=== PATIENT | male | born 1965 | race Caucasian/White ===

== ENCOUNTER → 2016-11-13 | Outpatient (CLI) | payer OTHER ==
--- NOTE | 2016-11-13 07:29 | US ---
EXAMINATION TYPE: US gallbladder DATE OF EXAM: 11/13/2016 COMPARISON: NONE CLINICAL HISTORY: R10.84 ABD PAIN. Chest pain and pressure EXAM MEASUREMENTS: Liver Length: 22.6 cm Gallbladder Wall: 0.6 cm CBD: 0.4 cm Right Kidney: 10.5 x 4.5 x 4.6 cm Pancreas: Obscured by bowel gas Liver: Enlarged, heterogeneous with probable fatty sparing, difficult to penetrate Gallbladder: Multiple gallstones with thickened wall Evidence for sonographic Kimball's sign: Yes CBD: wnl Right Kidney: wnl IMPRESSION: 1. Clinical correlation recommended for acute cholecystitis. 2. Moderate fatty infiltration liver.
== END | disposition home or self-care (01) ==
LOC: RADUSWWP 06:51
PROVIDERS: ATTEND Internal Medicine
DX: K76.0 Fatty (change of) liver, not elsewhere classified (principal)
CPT/HCPCS: 76705

== ENCOUNTER 2017-03-28 10:20 | Inpatient (IN) | payer OTHER ==
[2017-03-28] MEDS ORDERED: HYDROmorphone 1 MG/ML 1 ML SYRINGE IVP STA ×2 (10:56→12:27)
[2017-03-28] MEDS ORDERED: ONDANSETRON 4 MG/2 ML VIAL IVP STA (10:56)
--- NOTE | 2017-03-28 10:59 | ED ---
General Adult HPI <Marcelino Pizano - Last Filed: 03/28/17 12:53> - General Source: patient, RN notes reviewed Mode of arrival: ambulatory Limitations: no limitations <David Vela - Last Filed: 03/28/17 12:57> - General Chief complaint: Abdominal Pain Stated complaint: ABDOMINAL PAIN Time Seen by Provider: 03/28/17 10:38 - History of Present Illness Initial comments: Patient 51-year-old male who presents emergency room today with chief complaint of abdominal pain over the last 2-3 days. He does admit that he is expressing discomfort in the upper abdomen. He states this started after he ate breakfast a few days ago. He states had similar symptoms in the past and has gone to other emergency room for her states that he's been treated for indigestion. He states they've not been able to hold anything else is wrong. He states that he was speaking with his sister who describes similar symptoms and have problems with her gallbladder. Patient does admit to symptoms of nausea vomiting having a difficult time keeping his medications on this morning. He denies any other complaints or symptoms at this time. Patient denies any recent fever, chills, shortness of breath, chest pain, back pain, numbness or tingling, dysuria or hematuria, constipation or diarrhea, headaches or visual changes, or any other complaints. (David Vela) - Related Data Home Medications Medication Instructions Recorded Confirmed Atenolol/Chlorthalidone 1 tab PO DAILY 11/27/15 03/28/17 [Atenolol-Chlorthalidone 50-25] Omeprazole [PriLOSEC] 20 mg PO DAILY 11/27/15 03/28/17 Ergocalciferol (Vitamin D2) 50,000 unit PO MO 03/28/17 03/28/17 [Vitamin D2] Fenofibrate 160 mg PO DAILY 03/28/17 03/28/17 Lovastatin [Mevacor] 20 mg PO DAILY 03/28/17 03/28/17 Ranitidine HCl [Zantac] 150 mg PO DAILY PRN 03/28/17 03/28/17 Previous Rx's Medication Instructions Recorded Cyclobenzaprine [Flexeril] 10 mg PO BID #60 tablet 01/29/16 HYDROcodone/APAP 10-325MG [[place] 1 tab PO Q6H PRN #20 tab 01/29/16 10-325] Meloxicam [Mobic] 7.5 mg PO BID #60 tab 01/29/16 Allergies Allergy/AdvReac Type Severity Reaction Status Date / Time codeine Allergy Rash/Hives Verified 03/28/17 11:14 Penicillins Allergy Unknown Verified 03/28/17 11:14 Childhood Review of Systems ROS Other: All systems not noted in ROS Statement are negative. <Marcelino Pizano - Last Filed: 03/28/17 12:53> ROS Other: All systems not noted in ROS Statement are negative. <David Vela - Last Filed: 03/28/17 12:57> ROS Statement: Those systems with pertinent positive or pertinent negative responses have been documented in the HPI. Past Medical History Past Medical History: Asthma, Chest Pain / Angina, GERD/Reflux, Hypertension, Myocardial Infarction ([place]), Musculoskeletal Disorder Additional Past Medical History / Comment(s): Slipped Discs in Neck, INCR PAIN LATELY W/ NT RAKESH ARMS/HANDS. DJD Lower Back. HYPOGLYCEMIA. RAN OUT OF RX, HAD SOME CP, LAST 3-4 DAYS AGO, AWAITING REFILLS. 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 Last Myocardial Infarction Date:: August 2014 History of Any Multi-Drug Resistant Organisms: None Reported Past Surgical History: Heart Catheterization Additional Past Surgical History / Comment(s): LT Eye - Has Nylon Screen from Inj at 16 yrs old. PAIN PROC, LAST ON 12/03/15. Skin cancer removal Past Anesthesia/Blood Transfusion Reactions: No Reported Reaction Past Psychological History: Anxiety, Depression Smoking Status: Former smoker Past Alcohol Use History: Rare Past Drug Use History: None Reported - Past Family History Father Family Medical History: Coronary Artery Disease (CAD), Myocardial Infarction ([place] ) Additional Family Medical History / Comment(s): Father has 3 coronary stents. Mother Additional Family Medical History / Comment(s): Mother has irregular heart beat , had tx for this . <David Vela - Last Filed: 03/28/17 12:57> General Exam <Marcelino Pizano - Last Filed: 03/28/17 12:53> Limitations: no limitations <David Vela - Last Filed: 03/28/17 12:57> - General Exam Comments Initial Comments: General: The patient is awake and alert, in no distress, and does not appear acutely ill. Eye: Pupils are equal, round and reactive to light, extra-ocular movements are intact. No nystagmus. There is normal conjunctiva bilaterally. No signs of icterus. Ears, nose, mouth and throat: There are moist mucous membranes and no oral lesions. Neck: The neck is supple, there is no tenderness or JVD. Cardiovascular: There is a regular rate and rhythm. No murmur, rub or gallop is appreciated. Respiratory: Lungs are clear to auscultation, respirations are non-labored, breath sounds are equal. No wheezes, stridor, rales, or rhonchi. Gastrointestinal: Normal appearance. Normal bowel sounds. Patient does have tenderness epigastrically upper quadrant. No rebound or guarding. No CVA tenderness. Musculoskeletal: Normal ROM, no tenderness. Strength 5/5. Sensation intact. Pulses equal bilaterally 2+. Neurological: A&O x 3. CN II-XII intact, There are no obvious motor or sensory deficits. Coordination appears grossly intact. Speech is normal. Skin: Skin is warm and dry and no rashes or lesions are noted. Psychiatric: Cooperative, appropriate mood & affect, normal judgment. (David Vela) Course <Marcelino Pizano - Last Filed: 03/28/17 12:53> <David Vela - Last Filed: 03/28/17 12:57> Vital Signs 03/28/17 03/28/17 10:28 12:27 Temperature 97.9 F 98.7 F Pulse Rate 74 69 Respiratory 18 18 Rate Blood Pressure 135/95 135/92 O2 Sat by Pulse 98 97 Oximetry - Reevaluation(s) Reevaluation #1: 03/28/17 12:53 I did personally do a [id number] evaluation the patient did discuss findings with him and his . Patient does demonstrate right upper quadrant tenderness palpation. Ultrasound does show a thickened gallbladder wall with a borderline common bile duct. Patient does have a markedly elevated bilirubin as well as liver enzymes. Did discuss the case with Dr. Tapia who is on city call for surgery I also did discuss the case with Trav Walsh. Patient will be admitted with consultation to see from GI for a possible ERCP. Patient does have no personal antibiotic ALLERGIES he has been on Keflex without any difficulty there is a family history of penicillin ALLERGY so he is not ever had a problem with this he is not sure if he ever took penicillin. (Marcelino Pizano ) Medical Decision Making - Lab Data Result diagrams: 03/28/17 11:10 03/28/17 11:10 <Marcelino Pizano - Last Filed: 03/28/17 12:53> - Lab Data Result diagrams: 03/28/17 11:10 03/28/17 11:10 <David Vela - Last Filed: 03/28/17 12:57> - Lab Data Lab Results 03/28/17 03/28/17 03/28/17 Range/Units 11:10 11:10 11:58 WBC 5.0 (3.8-10.6) k/uL RBC 5.38 (4.30-5.90) m/uL Hgb 16.6 (13.0-17.5) gm/dL Hct 47.6 (39.0-53.0) % MCV 88.4 (80.0-100.0) fL MCH 30.8 (25.0-35.0) pg MCHC 34.8 (31.0-37.0) g/dL RDW 13.5 (11.5-15.5) % Plt Count 309 (150-450) k/uL Neutrophils % 66 % Lymphocytes % 19 % Monocytes % 5 % Eosinophils % 7 % Basophils % 1 % Neutrophils # 3.3 (1.3-7.7) k/uL Lymphocytes # 1.0 (1.0-4.8) k/uL Monocytes # 0.3 (0-1.0) k/uL Eosinophils # 0.3 (0-0.7) k/uL Basophils # 0.0 (0-0.2) k/uL Sodium 138 (137-145) mmol/L Potassium 3.5 (3.5-5.1) mmol/L Chloride 98 (98-107) mmol/L Carbon Dioxide 25 (22-30) mmol/L Anion Gap 15 mmol/L BUN 19 (9-20) mg/dL Creatinine 1.50 H (0.66-1.25) mg/dL Est GFR (MDRD) Af Amer 60 (>60 ml/min/1.73 sqM) Est GFR (MDRD) Non-Af 49 (>60 ml/min/1.73 sqM) Glucose 140 H (74-99) mg/dL Calcium 10.1 (8.4-10.2) mg/dL Total Bilirubin 6.3 H (0.2-1.3) mg/dL AST 925 H (17-59) U/L ALT 1263 H (21-72) U/L Alkaline Phosphatase 126 (38-126) U/L Total Protein 7.8 (6.3-8.2) g/dL Albumin 4.8 (3.5-5.0) g/dL Amylase 40 (30-110) U/L Lipase 308 H (23-300) U/L Urine Color Dark [place] Urine Appearance Clear (Clear) Urine pH 6.0 (5.0-8.0) Ur Specific Gleason 1.017 (1.001-1.035) Urine Protein 1+ H (Negative) Urine Glucose (UA) Negative (Negative) Urine Ketones Negative (Negative) Urine Blood Negative (Negative) Urine Nitrite Negative (Negative) Urine Bilirubin 2+ H (Negative) Urine Urobilinogen 4.0 (<2.0) mg/dL Ur Leukocyte Esterase Negative (Negative) Urine RBC <1 (0-5) /hpf Urine WBC 1 (0-5) /hpf Ur Squamous Epith Cells <1 (0-4) /hpf Urine Mucus Few H (None) /hpf Disposition <Marcelino Pizano - Last Filed: 03/28/17 12:53> Time of Disposition: 12:57 <David Vela - Last Filed: 03/28/17 12:57> Clinical Impression: Cholecystitis Disposition: ADMITTED IP TO THIS HOSP Condition: Stable Referrals: Valerie Belcher MD [Primary Care Provider] - 1-2 days
[2017-03-28 11:18] LABS: Basophils % (A) 1 %; CH 31.7; Eosinophils # (A) 0.3 k/uL (0-0.7); Eosinophils % (A) 7 %; HCT 47.6 % (39.0-53.0); HDW 2.51; HGB 16.6 gm/dL (13.0-17.5); Luc # (Auto) 0.08; Luc % (Auto) 2; Lymphocytes % (A) 19 %; MCH 30.8 pg (25.0-35.0); MCHC 34.8 g/dL (31.0-37.0); MCV 88.4 fL (80.0-100.0); Monocytes # (A) 0.3 k/uL (0-1.0); Monocytes % (A) 5 %; Neutrophils # (A) 3.3 k/uL (1.3-7.7); Neutrophils % (A) 66 %; RBC 5.38 m/uL (4.30-5.90); RDW 13.5 % (11.5-15.5); WBC (Perox) 5.01
[2017-03-28 11:31] LABS: Calcium 10.1 mg/dL (8.4-10.2); Potassium 3.5 mmol/L (3.5-5.1); Total Bilirubin 6.3 mg/dL (0.2-1.3); Total Protein 7.8 g/dL (6.3-8.2)
--- NOTE | 2017-03-28 11:47 | XR ---
EXAMINATION TYPE: XR KUB , 2 VIEWS DATE OF EXAM ORDERED: 03/28/2017 HISTORY: abdominal pain. COMPARISON: None. FINDINGS: The lung bases are clear. Within the abdomen, there are nondistended loops of air-filled small bowel. No free air is seen. No u nusual calcifications are identified. IMPRESSION: FINDINGS MOST CONSISTENT WITH SMALL BOWEL ILEUS.
[2017-03-28] MEDS ORDERED: SODIUM CHLORIDE 0.9% 1,000 ML IV STA (12:04)
--- NOTE | 2017-03-28 12:10 | US ---
EXAMINATION TYPE: US abdomen limited DATE OF EXAM: 03/28/2017 COMPARISON: Previous study dated 11/13/2016 CLINICAL HISTORY: Pain. RUQ and epigastric pain, nausea/vomiting x 3 days EXAM MEASUREMENTS: Liver Length: 22.9 cm Gallbladder Wall: 0.4 cm CBD: 0.5 cm Right Kidney: 11.0 x 4.8 x 5.2 cm *Technical limitations due to overlying bowel content Pancreas: Obscured by bowel gas Liver: enlarged, heterogeneous, attenuating, unable to penetrate Gallbladder: multiple stones, thickened wall Evidence for sonographic Kimball's sign: yes CBD: limited evaluation Right Kidney: no evidence of hydronephrosis or mass The pancreas is obscured. The liver is enlarged measuring 23 cm. It is echogenic and likely fatty infiltrated. There are multiple stones within the gallbladder. Gallbladder wall is thickened measuring 4 mm. The d istal common hepatic duct measures 5 mm. There is a positive sonographic Kimball's sign. The right kidney is unremarkable. IMPRESSION: 1. HEPATOMEGALY AND FATTY INFILTRATION OF THE LIVER. 2. CHOLELITHIASIS AND PROBABLE ACUTE CHOLECYSTITIS.
[2017-03-28 12:26] LABS: Appearance,Urine Clear (Clear); Bilirubin,Urine 2+ (Negative); Glucose,Urine (UA) Negative (Negative); Ketones,Urine Negative (Negative); Leukocyte Esterase,Urine Negative (Negative); Mucus,Urine Few /hpf; Nitrite,Urine Negative (Negative); Particle Count 5917; Protein,Urine 1+ (Negative); RBC,Urine <1 /hpf (0-5); Specific Gravity,Urine 1.017 (1.001-1.035); Squamous Epithelial Cell,Urine <1 /hpf (0-4); UA Billing (MACRO vs. MICRO) MICRO; WBC,Urine 1 /hpf (0-5)
[2017-03-28] MEDS ORDERED: LORazepam 2 MG/ML INJ IV PRN (12:53)
[2017-03-28] MEDS ORDERED: NALOXONE 0.4 MG/ML 1 ML VIAL IV PRN (12:53)
[2017-03-28] MEDS ORDERED: PIPERACILLIN-TAZOBACTAM 3.375 GM in DEXTROSE/WATER 1 50ML.BAG IVPB STA (12:55)
--- NOTE | 2017-03-28 13:53 | P.GSCN ---
History of Present Illness Consult date: 03/28/17 Reason for Consult: Abdominal pain History of present illness: The patient's a 51-year-old man who presented to the emergency room with abdominal pain. He's had pain like this in the past 3-6 months. The emergency department and had a computed tomography scan done which was normal. I see report of the ultrasound done in October which showed similar findings of gallstones and gallbladder wall thickening. Currently he's had 3 days of pain with nausea and vomiting. He thinks she's had a fever. Denies jaundice, tea- colored urine or acholic stool. History of elevated liver function tests for greater than 1 year. He says he used to drink a "lot of beer" and that would cause pain and diarrhea. Now he just occasionally has a glass of wine or mixed drink. He thinks he is been evaluated in the past for hepatitis and HIV in those tests have been negative according to him. I don't see those results on the computer. No blood in the stool or dark tarry stool. There is a family history of gallbladder disease. Review of Systems All systems: negative Past Medical History Past Medical History: Asthma, Chest Pain / Angina, GERD/Reflux, Hypertension, Myocardial Infarction ([place]), Musculoskeletal Disorder Additional Past Medical History / Comment(s): Degenerative joint disease in his back, elevated liver function tests Last Myocardial Infarction Date:: August 2014 History of Any Multi-Drug Resistant Organisms: None Reported Past Surgical History: Heart Catheterization Additional Past Surgical History / Comment(s): LT Eye - Has Nylon Screen from Inj at 16 yrs old. PAIN PROC, LAST ON 12/03/15. Skin cancer removal Past Anesthesia/Blood Transfusion Reactions: No Reported Reaction Past Psychological History: Anxiety, Depression Smoking Status: Former smoker Past Alcohol Use History: Rare Past Drug Use History: None Reported - Past Family History Father Family Medical History: Coronary Artery Disease (CAD), Myocardial Infarction ([place] ) Additional Family Medical History / Comment(s): Father has 3 coronary stents. Mother Additional Family Medical History / Comment(s): Mother has irregular heart beat , had tx for this . Medications and Allergies Home Medications Medication Instructions Recorded Confirmed Type Atenolol/Chlorthalidone 1 tab PO DAILY 11/27/15 03/28/17 History [Atenolol-Chlorthalidone 50-25] Omeprazole [PriLOSEC] 20 mg PO DAILY 11/27/15 03/28/17 History Cyclobenzaprine [Flexeril] 10 mg PO BID #60 tablet 01/29/16 03/28/17 Rx HYDROcodone/APAP 10-325MG [[place] 1 tab PO Q6H PRN #20 tab 01/29/16 03/28/17 Rx 10-325] Meloxicam [Mobic] 7.5 mg PO BID #60 tab 01/29/16 03/28/17 Rx Ergocalciferol (Vitamin D2) 50,000 unit PO MO 03/28/17 03/28/17 History [Vitamin D2] Fenofibrate 160 mg PO DAILY 03/28/17 03/28/17 History Lovastatin [Mevacor] 20 mg PO DAILY 03/28/17 03/28/17 History Ranitidine HCl [Zantac] 150 mg PO DAILY PRN 03/28/17 03/28/17 History Allergies Allergy/AdvReac Type Severity Reaction Status Date / Time codeine Allergy Rash/Hives Verified 03/28/17 11:14 Penicillins Allergy Unknown Verified 03/28/17 11:14 Childhood Surgical - Exam Osteopathic Statement: *. No significant issues noted on an osteopathic structural exam other than those noted in the History and Physical/Consult. Vital Signs Temp Pulse Resp BP Pulse Ox 97.9 F 74 18 135/95 98 03/28/17 10:28 03/28/17 10:28 03/28/17 10:28 03/28/17 10:28 03/28/17 10:28 - General well developed, well nourished, no distress - Eyes normal ocular movement - ENT normal mucosa - Neck trachea midline, no lymphadectomy - Respiratory normal expansion, clear to auscultation - Cardiovascular Rhythm: regular - Abdomen Abdomen: soft, tender (Minimal epigastric), bowel sounds, no guarding, no rigid , no rebound, distended (Somewhat protruding Get with slight tympany to percussion) - Psychiatric oriented to time, oriented to person, oriented to place, speech is normal, memory intact Results - Labs 03/28/17 11:10 03/28/17 11:10 Abnormal Lab Results - Last 24 Hours (Table) 03/28/17 03/28/17 Range/Units 11:10 11:58 Creatinine 1.50 H (0.66-1.25) mg/dL Glucose 140 H (74-99) mg/dL Total Bilirubin 6.3 H (0.2-1.3) mg/dL AST 925 H (17-59) U/L ALT 1263 H (21-72) U/L Lipase 308 H (23-300) U/L Urine Protein 1+ H (Negative) Urine Bilirubin 2+ H (Negative) Urine Mucus Few H (None) /hpf Diabetes panel 03/28/17 Range/Units 11:10 Sodium 138 (137-145) mmol/L Potassium 3.5 (3.5-5.1) mmol/L Chloride 98 (98-107) mmol/L Carbon Dioxide 25 (22-30) mmol/L BUN 19 (9-20) mg/dL Creatinine 1.50 H (0.66-1.25) mg/dL Glucose 140 H (74-99) mg/dL Calcium 10.1 (8.4-10.2) mg/dL AST 925 H (17-59) U/L ALT 1263 H (21-72) U/L Alkaline Phosphatase 126 (38-126) U/L Total Protein 7.8 (6.3-8.2) g/dL Albumin 4.8 (3.5-5.0) g/dL Calcium panel 03/28/17 Range/Units 11:10 Calcium 10.1 (8.4-10.2) mg/dL Albumin 4.8 (3.5-5.0) g/dL Pituitary panel 03/28/17 Range/Units 11:10 Sodium 138 (137-145) mmol/L Potassium 3.5 (3.5-5.1) mmol/L Chloride 98 (98-107) mmol/L Carbon Dioxide 25 (22-30) mmol/L BUN 19 (9-20) mg/dL Creatinine 1.50 H (0.66-1.25) mg/dL Glucose 140 H (74-99) mg/dL Calcium 10.1 (8.4-10.2) mg/dL Adrenal panel 03/28/17 Range/Units 11:10 Sodium 138 (137-145) mmol/L Potassium 3.5 (3.5-5.1) mmol/L Chloride 98 (98-107) mmol/L Carbon Dioxide 25 (22-30) mmol/L BUN 19 (9-20) mg/dL Creatinine 1.50 H (0.66-1.25) mg/dL Glucose 140 H (74-99) mg/dL Calcium 10.1 (8.4-10.2) mg/dL Total Bilirubin 6.3 H (0.2-1.3) mg/dL AST 925 H (17-59) U/L ALT 1263 H (21-72) U/L Alkaline Phosphatase 126 (38-126) U/L Total Protein 7.8 (6.3-8.2) g/dL Albumin 4.8 (3.5-5.0) g/dL - Imaging US - abdomen: report reviewed Assessment and Plan (1) Cholelithiasis Current Visit: Yes Status: Acute Code(s): K80.20 - CALCULUS OF GALLBLADDER W /O CHOLECYSTITIS W/O OBSTRUCTION SNOMED Code(s): 026916425 (2) Elevated liver function tests Current Visit: Yes Status: Acute Code(s): R79.89 - OTHER SPECIFIED ABNORMAL FINDINGS OF BLOOD CHEMISTRY SNOMED Code(s): 321263586 (3) Abdominal pain Current Visit: Yes Status: Acute Code(s): R10.9 - UNSPECIFIED ABDOMINAL PAIN SNOMED Code(s): 49318476 Plan: He does have gallstones. The ultrasound findings of gallbladder wall thickening is similar to an ultrasound done in October. His common bile duct is normal caliber. The liver function tests are elevated. Agree with GI consult. Agree with empiric antibiotics. We will order an MRCP to further evaluate this. If that is normal then concern would be for some sort of alcoholic hepatitis causing the elevated liver function tests. Further recommendations to follow
[2017-03-28 14:30] VITALS: BMI 31.4
[2017-03-28] MEDS: HYDROmorphone 1 MG/ML 1 ML SYRINGE IVP PRN ×2 (18:18→22:43)
[2017-03-28] MEDS: PIPERACILLIN-TAZOBACTAM 3.375 GM in DEXTROSE/WATER 1 50ML.BAG IVPB SCH (20:28)
[2017-03-29] MEDS: PIPERACILLIN-TAZOBACTAM 3.375 GM in DEXTROSE/WATER 1 50ML.BAG IVPB SCH ×3 (05:51→21:18)
[2017-03-29] MEDS: HYDROmorphone 1 MG/ML 1 ML SYRINGE IVP PRN ×2 (05:56→08:52)
[2017-03-29] MEDS: ONDANSETRON 4 MG/2 ML VIAL IVP PRN ×2 (05:56→15:31)
[2017-03-29 08:44] LABS: Basophils % (A) 1 %; CH 32.6; Eosinophils # (A) 0.3 k/uL (0-0.7); Eosinophils % (A) 8 %; HCT 40.5 % (39.0-53.0); HDW 2.75; HGB 14.1 gm/dL (13.0-17.5); Luc # (Auto) 0.11; Luc % (Auto) 3; Lymphocytes # (A) 1.2 k/uL (1.0-4.8); Lymphocytes % (A) 29 %; MCH 31.7 pg (25.0-35.0); MCHC 34.9 g/dL (31.0-37.0); MCV 90.8 fL (80.0-100.0); Mean Platelet Volume 6.4; Monocytes # (A) 0.3 k/uL (0-1.0); Monocytes % (A) 8 %; Neutrophils # (A) 2.3 k/uL (1.3-7.7); Neutrophils % (A) 53 %; RBC 4.46 m/uL (4.30-5.90); RDW 12.4 % (11.5-15.5); WBC 4.3 k/uL (3.8-10.6); WBC (Perox) 4.17
[2017-03-29 09:10] LABS: Calcium 9.3 mg/dL (8.4-10.2); Potassium 3.3 mmol/L (3.5-5.1); Total Bilirubin 3.3 mg/dL (0.2-1.3); Total Protein 6.7 g/dL (6.3-8.2)
[2017-03-29] MEDS: SODIUM CHLORIDE 0.9% 1,000 ML IV SCH ×2 (11:03→19:45)
[2017-03-29] MEDS ORDERED: Potassium Replacement Protocol 1 EACH MISC MISCELLANE PRN (11:55)
--- NOTE | 2017-03-29 11:58 | P.HPIM ---
History of Present Illness H&P Date: 03/29/17 Chief Complaint: Abdominal pain This is a 51-year-old gentleman with past medical history noted below who presented to the emergency room with abdominal pain. Patient said that his pain is being going on and off for several weeks and got progressively worse for the past few days. He described this pain as sharp and located mostly in the epigastric area and right upper quadrant. He denies nausea or vomiting. He said that he is having normal bowel movement. He can't recall anything that makes his pain better or worse. He presented to the emergency room and was evaluated and was found to have evidence of acute hepatitis with elevated bilirubin. Patient himself denies drinking alcohol. He said that he is only drinking occasionally. He underwent an ultrasound of the liver showing evidence of cholelithiasis with probable acute cholecystitis. Patient was admitted to the hospital for further evaluation. Review of Systems Review of system: 14 points review of systems were obtained and were negative except to what were mentioned in the HPI. Past Medical History Past Medical History: Asthma, Chest Pain / Angina, GERD/Reflux, Hypertension, Myocardial Infarction ([place]), Musculoskeletal Disorder Additional Past Medical History / Comment(s): Degenerative joint disease in his back, elevated liver function tests Last Myocardial Infarction Date:: August 2014 History of Any Multi-Drug Resistant Organisms: None Reported Past Surgical History: Heart Catheterization Additional Past Surgical History / Comment(s): LT Eye - Has Nylon Screen from Inj at 16 yrs old. PAIN PROC, LAST ON 12/03/15. Skin cancer removal Past Anesthesia/Blood Transfusion Reactions: No Reported Reaction Past Psychological History: Anxiety, Depression Additional Psychological History / Comment(s): NO RX USED CURRENTLY, SEEING THERAPIST Smoking Status: Former smoker Past Alcohol Use History: Rare Additional Past Alcohol Use History / Comment(s): Started Smoking age 35, 1 ppd. Past Drug Use History: None Reported - Past Family History Father Family Medical History: Coronary Artery Disease (CAD), Myocardial Infarction ([place] ) Additional Family Medical History / Comment(s): Father has 3 coronary stents. Mother Additional Family Medical History / Comment(s): Mother has irregular heart beat , had tx for this . Medications and Allergies Home Medications Medication Instructions Recorded Confirmed Type Atenolol/Chlorthalidone 1 tab PO DAILY 11/27/15 03/28/17 History [Atenolol-Chlorthalidone 50-25] Omeprazole [PriLOSEC] 20 mg PO DAILY 11/27/15 03/28/17 History Cyclobenzaprine [Flexeril] 10 mg PO BID #60 tablet 01/29/16 03/28/17 Rx HYDROcodone/APAP 10-325MG [[place] 1 tab PO Q6H PRN #20 tab 01/29/16 03/28/17 Rx 10-325] Meloxicam [Mobic] 7.5 mg PO BID #60 tab 01/29/16 03/28/17 Rx Ergocalciferol (Vitamin D2) 50,000 unit PO MO 03/28/17 03/28/17 History [Vitamin D2] Fenofibrate 160 mg PO DAILY 03/28/17 03/28/17 History Lovastatin [Mevacor] 20 mg PO DAILY 03/28/17 03/28/17 History Ranitidine HCl [Zantac] 150 mg PO DAILY PRN 03/28/17 03/28/17 History Allergies Allergy/AdvReac Type Severity Reaction Status Date / Time codeine Allergy Rash/Hives Verified 03/28/17 11:14 Penicillins Allergy Unknown Verified 03/28/17 11:14 Childhood Physical Exam Vitals: Vital Signs Temp Pulse Pulse Pulse Resp BP BP 03/29/17 07:00 97.1 F L 65 20 115/65 03/28/17 23:00 97.9 F 59 L 18 123/68 03/28/17 14:12 97.1 F L 64 18 122/70 03/28/17 13:18 98.7 F 68 20 155/90 03/28/17 12:27 98.7 F 69 18 135/92 Pulse Ox 03/29/17 07:00 95 03/28/17 23:00 97 03/28/17 14:12 97 03/28/17 13:18 97 03/28/17 12:27 97 Intake and Output 03/28/17 03/29/17 03/29/17 22:59 06:59 14:59 Intake Total 550 0 Balance 550 0 Intake: Oral 550 0 Other: Voiding Method Toilet Toilet # Voids 1 2 General: The patient is awake and alert, in no distress Eye: there is normal conjunctiva bilaterally. Neck: The neck is supple, there is no JVD. Cardiovascular: Normal S1-S2, no S3-S4, no murmurs. Respiratory: Lungs clear to auscultation bilaterally Gastrointestinal: Abdomen is soft, there is moderate tenderness to palpation worse in the epigastric area and right upper quadrant Musculoskeletal: There is no pedal edema. Neurological:. Speech is normal. Skin: Skin is warm and dry Results CBC & Chem 7: 03/29/17 08:11 03/29/17 08:11 Labs: Abnormal Lab Results - Last 24 Hours (Table) 03/28/17 03/29/17 Range/Units 11:58 08:11 Potassium 3.3 L (3.5-5.1) mmol/L Creatinine 1.54 H (0.66-1.25) mg/dL Total Bilirubin 3.3 H (0.2-1.3) mg/dL AST 387 H (17-59) U/L ALT 807 H (21-72) U/L Lipase 335 H (23-300) U/L Urine Protein 1+ H (Negative) Urine Bilirubin 2+ H (Negative) Urine Mucus Few H (None) /hpf Thrombosis Risk Factor Assmnt - Choose All That Apply Any of the Below Risk Factors Present?: Yes Other Risk Factors: No Other congenital or acquired thrombophilia - If yes, enter type in comment: No Assessment and Plan Assessment: 1. Cholelithiasis 2. Acute hepatitis with hyperbilirubinemia 3. Abdominal pain 4. Essential hypertension: Blood pressure within acceptable range 5. Mixed hyperlipidemia 6. Acute kidney injury Patient was seen and evaluated by general surgery. It is suspected acute cholecystitis with ascending cholangitis. Patient is on IV antibiotic. MRCP ordered. Awaiting GI evaluation. Viral hepatitis screen pending. Patient denies any alcohol use. Liver function tests are improving. We will continue to hold Lipitor and Tylenol. Continue IV fluid hydration. Pain control. Repeat lab work in the morning. Appreciate consultants recommendations.
--- NOTE | 2017-03-29 12:34 | MR ---
MRCP HISTORY: Abnormal abdomen ultrasound, abdomen pain and elevated liver function tests Multiplanar multisequence imaging obtained through the abdomen with three-dimensional reconstructions performed through the biliary tree. Exam correlated to prior ultrasound 03/28/2017 The liver shows signal drop on out of phase imaging compatible with fatty infiltration. The liver is enlarged. The spleen is enlarged. Gallbladder shows multiple luminal low signal foci compatible with stones. Gallbladder wall is thicke lesley There is no bowel dilation present. There are small foci of low signal also present within the di stal common bile duct. The heart appears enlarged. There is no pleural or pericardial effusion evident. The adrenal glands, kidneys, and pancreas are within normal limits. There is no retroperitoneal adenopathy or ascites. IMPRESSION: Cholelithiasis, choledocholithiasis. Thickened gallbladder wall, correlate for cholecysti tis. Cardiomegaly. Hepatic steatosis, hepatosplenomegaly.
[2017-03-29] MEDS: HYDROmorphone 0.5 MG/0.5 ML SYRINGE IVP PRN ×3 (12:51→19:42)
[2017-03-29 13:16] LABS: Partial Thromboplastin Time 22.8 sec (22.0-30.0); Prothrombin Time 10.4 sec (9.0-12.0)
--- NOTE | 2017-03-29 16:12 | P.PN ---
Subjective Progress Note Date: 03/29/17 Principal diagnosis: Abdominal and chest pain, elevated liver function tests The patient is feeling better today. Tolerating clear liquids. He did go for his MRCP. Objective - Vital Signs Vital signs: Vital Signs Temp 97.3 F L 03/29/17 15:00 Pulse 69 03/29/17 15:00 Resp 20 03/29/17 15:00 BP 129/73 03/29/17 15:00 Pulse Ox 95 03/29/17 15:00 Intake & Output 03/28/17 03/29/17 03/29/17 18:59 06:59 18:59 Intake Total 550 Balance 550 Weight 102 kg Intake: Oral 550 Other: Voiding Method Toilet Toilet # Voids 2 2 - Constitutional General appearance: Present: cooperative, no acute distress - Gastrointestinal General gastrointestinal: Present: soft - Labs CBC & Chem 7: 03/29/17 08:11 03/29/17 08:11 Labs: Abnormal Lab Results - Last 24 Hours (Table) 03/29/17 Range/Units 08:11 Potassium 3.3 L (3.5-5.1) mmol/L Creatinine 1.54 H (0.66-1.25) mg/dL Total Bilirubin 3.3 H (0.2-1.3) mg/dL AST 387 H (17-59) U/L ALT 807 H (21-72) U/L Lipase 335 H (23-300) U/L Microbiology - Last 24 Hours (Table) 03/28/17 13:08 Blood Culture - Preliminary Blood No Growth after 24 hours Assessment and Plan (1) Cholelithiasis Current Visit: Yes Status: Acute Code(s): K80.20 - CALCULUS OF GALLBLADDER W /O CHOLECYSTITIS W/O OBSTRUCTION SNOMED Code(s): 534831231 (2) Elevated liver function tests Current Visit: Yes Status: Acute Code(s): R79.89 - OTHER SPECIFIED ABNORMAL FINDINGS OF BLOOD CHEMISTRY SNOMED Code(s): 386395236 (3) Abdominal pain Current Visit: Yes Status: Acute Code(s): R10.9 - UNSPECIFIED ABDOMINAL PAIN SNOMED Code(s): 28866866 (4) Hepatosplenomegaly Current Visit: Yes Status: Acute Code(s): R16.2 - HEPATOMEGALY WITH SPLENOMEGALY, NOT ELSEWHERE CLASSIFIED SNOMED Code(s): 76964251 Plan: The MRCP did not show evidence of choledocholithiasis. His ultrasound is essentially the same since October 2016. He has an enlarged liver and spleen. He has gallstones. There is minimal gallbladder wall thickening. The gallbladder wall thickening is likely due to underlying liver disease. I do not feel he has acute cholecystitis or biliary colic. Viral hepatitis panel is pending. The patient states he does not really drink anymore, but does say he drinks wine and occasionally mixed drink on the weekend. He says every other weekend he may have a pint of liquor. I recommend medical workup of the hepatosplenomegaly and elevated liver function tests. No plan for laparoscopic cholecystectomy at this point. I did explain to he and his family that if his symptoms are to do liver disease, laparoscopic cholecystectomy may precipitate acute hepatic decompensation. I will check on recommendations by gastroenterology tomorrow.
[2017-03-29] MEDS: HEPARIN SODIUM,PORCINE 5,000 UNIT/ML 1 ML VIAL SQ SCH (21:18)
--- NOTE | 2017-03-29 21:42 | P.CONS ---
History of Present Illness - Reason for Consult Consult date: 03/28/17 Abdominal pain and jaundice - History of Present Illness The patient is a 51-year old male who presented to the ER with complaints of epigastric and RUQ pain of 2-3 days duration with no associated nausea, vomiting , fever, chills or back pain. Apparently, he had similar episodes over the last 3-6 months and went o the ER and was treated for indigestion. An US showed cholelithiasis and some thickening of the wall of the GB to 0.4 cm and hepatomegaly and coarse echos consistent with fatty liver. Patient drinks occasionaly wine and mixed drinks and a pint of liquor every other weekend. The patient was evaluated by surgery and MRI is ordered for tomorrow. Review of Systems 12-point ROS is otherwise negative except as per PI above. Past Medical History Past Medical History: Asthma, Chest Pain / Angina, GERD/Reflux, Hypertension, Myocardial Infarction (OR), Musculoskeletal Disorder Additional Past Medical History / Comment(s): Degenerative joint disease in his back, elevated liver function tests Last Myocardial Infarction Date:: August 2014 History of Any Multi-Drug Resistant Organisms: None Reported Past Surgical History: Heart Catheterization Additional Past Surgical History / Comment(s): LT Eye - Has Nylon Screen from Inj at 16 yrs old. PAIN PROC, LAST ON 12/03/15. Skin cancer removal Past Anesthesia/Blood Transfusion Reactions: No Reported Reaction Past Psychological History: Anxiety, Depression Additional Psychological History / Comment(s): NO RX USED CURRENTLY, SEEING THERAPIST Smoking Status: Former smoker Past Alcohol Use History: Rare Additional Past Alcohol Use History / Comment(s): Started Smoking age 35, 1 ppd. Past Drug Use History: None Reported - Past Family History Father Family Medical History: Coronary Artery Disease (CAD), Myocardial Infarction (OR ) Additional Family Medical History / Comment(s): Father has 3 coronary stents. Mother Additional Family Medical History / Comment(s): Mother has irregular heart beat , had tx for this . Medications and Allergies Home Medications Medication Instructions Recorded Confirmed Type Atenolol/Chlorthalidone 1 tab PO DAILY 11/27/15 03/28/17 History [Atenolol-Chlorthalidone 50-25] Omeprazole [PriLOSEC] 20 mg PO DAILY 11/27/15 03/28/17 History Cyclobenzaprine [Flexeril] 10 mg PO BID #60 tablet 01/29/16 03/28/17 Rx HYDROcodone/APAP 10-325MG [[place] 1 tab PO Q6H PRN #20 tab 01/29/16 03/28/17 Rx 10-325] Meloxicam [Mobic] 7.5 mg PO BID #60 tab 01/29/16 03/28/17 Rx Ergocalciferol (Vitamin D2) 50,000 unit PO MO 03/28/17 03/28/17 History [Vitamin D2] Fenofibrate 160 mg PO DAILY 03/28/17 03/28/17 History Lovastatin [Mevacor] 20 mg PO DAILY 03/28/17 03/28/17 History Ranitidine HCl [Zantac] 150 mg PO DAILY PRN 03/28/17 03/28/17 History Allergies Allergy/AdvReac Type Severity Reaction Status Date / Time codeine Allergy Rash/Hives Verified 03/28/17 11:14 Penicillins Allergy Unknown Verified 03/28/17 11:14 Childhood Physical Exam Vitals: Vital Signs Temp Pulse Pulse Resp BP BP Pulse Ox 03/28/17 14:12 97.1 F L 64 18 122/70 97 03/28/17 13:18 98.7 F 68 20 155/90 97 03/28/17 12:27 98.7 F 69 18 135/92 97 03/28/17 10:28 97.9 F 74 18 135/95 98 Intake and Output 03/28/17 03/28/17 03/28/17 06:59 14:59 22:59 Other: Weight 102 kg Patient Weight 03/29/17 06:59 Weight 102 kg General: Appeared stated age very pleasant in no acute distress Head and neck: Normocephalic and atraumatic. Conjunctivae pink and sclerae icteric. Mucous membranes moist and pink. No masses in the neck or tracheal shifts Lungs: Clear to auscultation with no dullness to percussion Heart: Regular, no abnormal sounds, murmurs, gallops or friction rubs Abdomen: Obese, soft, tender in epigastric area to deep palpation. No masses felt. Liver enlarged. Bowel sounds present Extremities: No clubbing, cyanosis or edema Neurologic exam: Alert and oriented 3. Cranial nerves grossly intact, no gross sensory or motor abnormalities Results CBC & Chem 7: 03/29/17 08:11 03/29/17 08:11 Labs: Abnormal Lab Results - Last 24 Hours (Table) 03/28/17 03/28/17 Range/Units 11:10 11:58 Creatinine 1.50 H (0.66-1.25) mg/dL Glucose 140 H (74-99) mg/dL Total Bilirubin 6.3 H (0.2-1.3) mg/dL AST 925 H (17-59) U/L ALT 1263 H (21-72) U/L Lipase 308 H (23-300) U/L Urine Protein 1+ H (Negative) Urine Bilirubin 2+ H (Negative) Urine Mucus Few H (None) /hpf Assessment and Plan Assessment: Abdominal pain, cholelithiasis and abnormal liver enzymes with jaundice could be on the basis of choledocholithiasis and cholangitis. Plan: Agree with current management including antibiotics and MRCP. I will consider ERCP based on his course and MRI findings.
[2017-03-29] MEDS: CALCIUM CARBONATE 500 MG CHEWABLE PO PRN (22:00)
[2017-03-30] MEDS: HYDROmorphone 0.5 MG/0.5 ML SYRINGE IVP PRN ×7 (02:26→22:31)
[2017-03-30] MEDS: CALCIUM CARBONATE 500 MG CHEWABLE PO PRN (02:42)
[2017-03-30] MEDS: SODIUM CHLORIDE 0.9% 1,000 ML IV SCH ×2 (05:49→14:20)
[2017-03-30] MEDS: PIPERACILLIN-TAZOBACTAM 3.375 GM in DEXTROSE/WATER 1 50ML.BAG IVPB SCH ×3 (05:49→21:36)
[2017-03-30] MEDS: HEPARIN SODIUM,PORCINE 5,000 UNIT/ML 1 ML VIAL SQ SCH ×2 (07:39→20:07)
[2017-03-30] MEDS: PANTOPRAZOLE 40 MG TABLET PO SCH (07:39)
[2017-03-30] MEDS ORDERED: NON-FORMULARY DRUG (Atenolol/Chlorthalidone [Atenolol-Chlorthalidone 50-25] 1 TAB) PO SCH (09:00)
[2017-03-30 10:13] LABS: Basophils % (A) 1 %; CH 31.9; CHCM 34.8; Eosinophils # (A) 0.3 k/uL (0-0.7); Eosinophils % (A) 7 %; HCT 43.3 % (39.0-53.0); HDW 2.51; HGB 14.7 gm/dL (13.0-17.5); Luc # (Auto) 0.13; Luc % (Auto) 3; Lymphocytes # (A) 1.3 k/uL (1.0-4.8); Lymphocytes % (A) 32 %; MCH 31.2 pg (25.0-35.0); MCHC 33.9 g/dL (31.0-37.0); MCV 92.2 fL (80.0-100.0); Mean Platelet Volume 7.3; Monocytes # (A) 0.4 k/uL (0-1.0); Monocytes % (A) 10 %; Neutrophils # (A) 1.8 k/uL (1.3-7.7); Neutrophils % (A) 47 %; RDW 13.9 % (11.5-15.5); WBC 3.9 k/uL (3.8-10.6); WBC (Perox) 3.79
[2017-03-30 10:35] LABS: Potassium 3.3 mmol/L (3.5-5.1); Total Bilirubin 4.6 mg/dL (0.2-1.3); Total Protein 6.8 g/dL (6.3-8.2)
--- NOTE | 2017-03-30 11:40 | P.PN ---
Subjective Progress Note Date: 03/30/17 Principal diagnosis: Abdominal pain jaundice 51-year-old male with a history of EtOH abuse admitted with acute abdominal pain jaundice and gallstones. MRCP yesterday reported cholelithiasis and choledocholithiasis. Small foci of low signal present within the distal common bile duct. Hepatic steatosis and hepatosplenomegaly. Pain centered in the midepigastrium but improved from admission. Total bilirubin today increase to 4.6 yesterday 3.3. AST 601. ALT 893. Hepatitis screen nonreactive. Afebrile. Objective - Vital Signs Vital signs: Vital Signs Temp 97.8 F 03/30/17 07:00 Pulse 65 03/30/17 07:00 Resp 16 03/30/17 07:00 BP 130/82 03/30/17 07:00 Pulse Ox 95 03/30/17 07:00 Intake & Output 03/29/17 03/30/17 03/30/17 18:59 06:59 18:59 Intake Total 240 Balance 240 Intake: Oral 240 Other: Voiding Method Toilet Toilet # Voids 2 2 2 - Exam General appearance: The patient is alert, oriented, in no acute distress. Jaundice. HET: Head is normocephalic and atraumatic. Pupils are equal and reactive. Sclerae icterus. Oropharynx is clear without lesions. Neck: Supple without lymphadenopathy. Trachea midline. Heart: S1 S2. Regular rate and rhythm. Lungs: No crackles or wheezes are heard. Abdomen: Soft, midepigastric tenderness, nondistended with bowel sounds. No peritoneal signs. No palpable organomegaly or masses. Extremities: Normal skin color and turgor. No cyanosis, rash, ulceration, clubbing, or edema. Radial and pedal pulses are 2/4 bilaterally. Neurological: No focal deficits. Strength and sensation are grossly intact. - Labs CBC & Chem 7: 03/30/17 09:04 03/30/17 09:04 Labs: Abnormal Lab Results - Last 24 Hours (Table) 03/30/17 Range/Units 09:04 Potassium 3.3 L (3.5-5.1) mmol/L Creatinine 1.50 H (0.66-1.25) mg/dL Glucose 129 H (74-99) mg/dL Total Bilirubin 4.6 H (0.2-1.3) mg/dL AST 601 H (17-59) U/L ALT 893 H (21-72) U/L Microbiology - Last 24 Hours (Table) 03/28/17 13:08 Blood Culture - Preliminary Blood No Growth after 24 hours Assessment and Plan (1) Choledocholithiasis Narrative/Plan: 51-year-old male admitted with acute abdominal pain jaundice with worsenign liver function tests. MRCP indicated cholelithiasis and choledocholithiasis with underlying history of EtOH abuse. Suspect component of superimposed acute alcohol hepatitis intubating to his elevated liver function tests and jaundice. Current Visit: Yes Status: Acute Code(s): K80.50 - CALCULUS OF BILE DUCT W/ O CHOLANGITIS OR CHOLECYST W/O OBST SNOMED Code(s): 962575234 (2) ETOH abuse Current Visit: Yes Status: Acute Code(s): F10.10 - ALCOHOL ABUSE, UNCOMPLICATED SNOMED Code(s): 57112185 (3) Abdominal pain Current Visit: Yes Status: Acute Code(s): R10.9 - UNSPECIFIED ABDOMINAL PAIN SNOMED Code(s): 91046518 (4) Cholelithiasis Current Visit: Yes Status: Acute Code(s): K80.20 - CALCULUS OF GALLBLADDER W /O CHOLECYSTITIS W/O OBSTRUCTION SNOMED Code(s): 634692903 Plan: 1. ERCP evaluation tomorrow. 2. Alcohol abstinence. 3. Continue with Protonix 40 mg daily. Continue with antibiotics. 4. CBC CMP in a.m. The campus recruiting intern has discussed the risks, benefits and alternative therapies for the above-mentioned procedure and for both sedation/analgesia as well as necessary blood product administration, if indicated, as they pertain to this patient. The patient has indicated understanding and acceptance of the risks and procedures discussed. Assessment and plan of care discussed with Dr. Giron
[2017-03-30 13:55] LABS: Bilirubin, Delta 2.3 mg/dL (0.0-0.2); Total Bilirubin 4.6 mg/dL (0.2-1.3)
--- NOTE | 2017-03-30 13:57 | P.PN ---
Subjective Patient is still complaining of abdominal pain today. Liver function test is essentially unchanged. Patient is scheduled for ERCP tomorrow. Objective - Vital Signs Vital signs: Vital Signs Temp 97.8 F 03/30/17 07:00 Pulse 65 03/30/17 07:00 Resp 16 03/30/17 07:00 BP 130/82 03/30/17 07:00 Pulse Ox 95 03/30/17 07:00 Intake & Output 03/29/17 03/30/17 03/30/17 18:59 06:59 18:59 Intake Total 240 Balance 240 Intake: Oral 240 Other: Voiding Method Toilet Toilet # Voids 2 2 2 - Exam General: The patient is awake and alert, in no distress Eye: there is normal conjunctiva bilaterally. Neck: The neck is supple, there is no JVD. Cardiovascular: Normal S1-S2, no S3-S4, no murmurs. Respiratory: Lungs clear to auscultation bilaterally Gastrointestinal: Abdomen is soft, nontender Musculoskeletal: There is no pedal edema. Neurological:. Speech is normal. Skin: Skin is warm and dry - Labs CBC & Chem 7: 03/30/17 09:04 03/30/17 09:04 Labs: Abnormal Lab Results - Last 24 Hours (Table) 03/30/17 Range/Units 09:04 Potassium 3.3 L (3.5-5.1) mmol/L Creatinine 1.50 H (0.66-1.25) mg/dL Glucose 129 H (74-99) mg/dL Total Bilirubin 4.6 H (0.2-1.3) mg/dL AST 601 H (17-59) U/L ALT 893 H (21-72) U/L Microbiology - Last 24 Hours (Table) 03/28/17 13:08 Blood Culture - Preliminary Blood No Growth after 24 hours Assessment and Plan Assessment: 1. Cholelithiasis 2. Acute hepatitis with hyperbilirubinemia 3. Abdominal pain 4. Essential hypertension: Blood pressure within acceptable range 5. Mixed hyperlipidemia 6. Acute kidney injury 7. Hepatosplenomegaly Patient was seen and evaluated by general surgery. Acute cholecystitis ruled out clinically. MRCP showed evidence of cholelithiasis with thickened gallbladder wall. Patient was seen by GI and scheduled for ERCP tomorrow. We will continue to hold Lipitor and Tylenol. Continue IV fluid hydration. Pain control. Repeat lab work in the morning. Appreciate consultants recommendations.
--- NOTE | 2017-03-30 14:31 | P.PN ---
Subjective Principal diagnosis: Abdominal and chest pain, elevated liver function tests GI has seen the patient. The MRCP was suggestive of possible choledocholithiasis. (The MRCP had been verbally reported to me as normal except for the cholelithiasis). The patient is still having some pain with eating. Plan is for ERCP tomorrow Objective - Vital Signs Vital signs: Vital Signs Temp 97.8 F 03/30/17 07:00 Pulse 65 03/30/17 07:00 Resp 16 03/30/17 07:00 BP 130/82 03/30/17 07:00 Pulse Ox 95 03/30/17 07:00 Intake & Output 03/29/17 03/30/17 03/30/17 18:59 06:59 18:59 Intake Total 240 Balance 240 Intake: Oral 240 Other: Voiding Method Toilet Toilet # Voids 2 2 2 - Constitutional General appearance: Present: cooperative, no acute distress - Labs CBC & Chem 7: 03/30/17 09:04 03/30/17 09:04 Labs: Abnormal Lab Results - Last 24 Hours (Table) 03/30/17 03/30/17 Range/Units 09:04 09:04 Potassium 3.3 L (3.5-5.1) mmol/L Creatinine 1.50 H (0.66-1.25) mg/dL Glucose 129 H (74-99) mg/dL Total Bilirubin 4.6 H 4.6 H (0.2-1.3) mg/dL Conjugated Bilirubin 1.7 H (0.0-0.3) mg/dL Delta Bilirubin 2.3 H (0.0-0.2) mg/dL AST 601 H (17-59) U/L ALT 893 H (21-72) U/L Microbiology - Last 24 Hours (Table) 03/28/17 13:08 Blood Culture - Preliminary Blood No Growth after 24 hours Assessment and Plan (1) Cholelithiasis Current Visit: Yes Status: Acute Code(s): K80.20 - CALCULUS OF GALLBLADDER W /O CHOLECYSTITIS W/O OBSTRUCTION SNOMED Code(s): 843266665 (2) Elevated liver function tests Current Visit: Yes Status: Acute Code(s): R79.89 - OTHER SPECIFIED ABNORMAL FINDINGS OF BLOOD CHEMISTRY SNOMED Code(s): 951506780 (3) Abdominal pain Current Visit: Yes Status: Acute Code(s): R10.9 - UNSPECIFIED ABDOMINAL PAIN SNOMED Code(s): 54003247 (4) Hepatosplenomegaly Current Visit: Yes Status: Acute Code(s): R16.2 - HEPATOMEGALY WITH SPLENOMEGALY, NOT ELSEWHERE CLASSIFIED SNOMED Code(s): 96802139 Plan: Based on the final MRCP report of possible choledocholithiasis, he is going for a ERCP tomorrow. Plans for surgery will depend on ERCP findings and recommendation by gastroenterology. Further recommendations to follow
[2017-03-31] MEDS: SODIUM CHLORIDE 0.9% 1,000 ML IV SCH ×3 (05:20→14:48)
[2017-03-31] MEDS: PIPERACILLIN-TAZOBACTAM 3.375 GM in DEXTROSE/WATER 1 50ML.BAG IVPB SCH ×3 (06:17→21:44)
[2017-03-31] MEDS: HYDROmorphone 0.5 MG/0.5 ML SYRINGE IVP PRN ×5 (07:30→22:27)
[2017-03-31] MEDS: PANTOPRAZOLE 40 MG TABLET PO SCH (07:36)
[2017-03-31] MEDS: HEPARIN SODIUM,PORCINE 5,000 UNIT/ML 1 ML VIAL SQ SCH ×2 (07:37→20:31)
[2017-03-31 08:31] LABS: Basophils % (A) 1 %; CHCM 34.4; Eosinophils # (A) 0.3 k/uL (0-0.7); Eosinophils % (A) 8 %; HCT 45.4 % (39.0-53.0); HDW 2.55; HGB 14.9 gm/dL (13.0-17.5); Luc # (Auto) 0.13; Luc % (Auto) 3; Lymphocytes # (A) 1.2 k/uL (1.0-4.8); Lymphocytes % (A) 30 %; MCH 30.6 pg (25.0-35.0); MCHC 32.7 g/dL (31.0-37.0); MCV 93.6 fL (80.0-100.0); Mean Platelet Volume 7.5; Monocytes # (A) 0.4 k/uL (0-1.0); Monocytes % (A) 9 %; Neutrophils # (A) 1.9 k/uL (1.3-7.7); Neutrophils % (A) 49 %; RBC 4.85 m/uL (4.30-5.90); WBC (Perox) 3.74
[2017-03-31 08:46] LABS: Calcium 9.9 mg/dL (8.4-10.2); Potassium 3.6 mmol/L (3.5-5.1); Total Bilirubin 4.1 mg/dL (0.2-1.3); Total Protein 7.2 g/dL (6.3-8.2)
[2017-03-31] MEDS: LACTATED RINGERS 1,000 ML IV SCH (10:33)
[2017-03-31] MEDS: ONDANSETRON 4 MG/2 ML VIAL IVP PRN (10:46)
--- NOTE | 2017-03-31 11:31 | P.PN ---
Subjective Patient's report that his abdominal pain is improving. Liver function test is essentially unchanged. He is scheduled for ERCP today. Objective - Vital Signs Vital signs: Vital Signs Temp 96.6 F L 03/31/17 07:00 Pulse 68 03/31/17 07:00 Resp 18 03/31/17 07:00 BP 132/90 03/31/17 07:00 Pulse Ox 93 L 03/31/17 07:00 Intake & Output 03/30/17 03/31/17 03/31/17 18:59 06:59 18:59 Intake Total 240 600 Balance 240 600 Weight 102 kg Intake: Oral 240 600 Other: Voiding Method Toilet Toilet # Voids 2 2 - Exam General: The patient is awake and alert, in no distress Eye: there is normal conjunctiva bilaterally. Neck: The neck is supple, there is no JVD. Cardiovascular: Normal S1-S2, no S3-S4, no murmurs. Respiratory: Lungs clear to auscultation bilaterally Gastrointestinal: Abdomen is soft, nontender Musculoskeletal: There is no pedal edema. Neurological:. Speech is normal. Skin: Skin is warm and dry - Labs CBC & Chem 7: 03/31/17 07:58 03/31/17 07:58 Labs: Abnormal Lab Results - Last 24 Hours (Table) 03/30/17 03/31/17 Range/Units 09:04 07:58 Creatinine 1.51 H (0.66-1.25) mg/dL Glucose 124 H (74-99) mg/dL Total Bilirubin 4.6 H 4.1 H (0.2-1.3) mg/dL Conjugated Bilirubin 1.7 H (0.0-0.3) mg/dL Delta Bilirubin 2.3 H (0.0-0.2) mg/dL AST 512 H (17-59) U/L ALT 963 H (21-72) U/L Alkaline Phosphatase 133 H (38-126) U/L Microbiology - Last 24 Hours (Table) 03/28/17 13:08 Blood Culture - Preliminary Blood No Growth after 48 hours Assessment and Plan Assessment: 1. Cholelithiasis 2. Acute hepatitis with hyperbilirubinemia 3. Abdominal pain 4. Essential hypertension: Blood pressure within acceptable range 5. Mixed hyperlipidemia 6. Acute kidney injury 7. Hepatosplenomegaly Patient was seen and evaluated by general surgery. Acute cholecystitis ruled out clinically. Viral hepatitis panel negative. MRCP showed evidence of cholelithiasis with thickened gallbladder wall. Patient was seen by GI and scheduled for ERCP today. We will continue to hold Lipitor and Tylenol. Continue IV fluid hydration. Pain control. Repeat lab work in the morning. Appreciate consultants recommendations.
[2017-03-31] MEDS ORDERED: INDOMETHACIN 50MG SUPPOSITORY RECTAL ONE (12:00)
[2017-03-31] MEDS ORDERED: GLYCOPYRROLATE 0.2 MG/ML 2 ML VIAL ONE (13:27)
[2017-03-31] MEDS ORDERED: MIDAZOLAM 2 MG/2 ML VIAL ONE (13:27)
[2017-03-31] MEDS ORDERED: PROPOFOL 10 MG/ML 20 ML VIAL IV ONE (13:27)
[2017-03-31] MEDS ORDERED: LIDOCAINE 1% INJ 10MG/ML (20 ML MDV) ONE (13:27)
[2017-03-31] MEDS ORDERED: KETAMINE 10 MG/ML 20 ML VIAL ONE (13:27)
[2017-03-31] MEDS ORDERED: IV FLUID CONTINUATION 700 ML IV ONE (13:30)
[2017-03-31] MEDS ORDERED: IOHEXOL 300 MG/ML 50 ML BOTTLE MISCELLANE ONE (13:56)
--- NOTE | 2017-03-31 14:19 | P.PCN ---
Date of Procedure: 03/31/17 Procedure(s) Performed: Brief history: Patient is a 51-year-old white male, scheduled for an ERCP as part of evaluation of abdominal pain and elevated serum transaminases for the last 2 days' duration. he was noted to have elevated LFTs as well as jaundice and MRCP showed evidence of CBD stones. Procedure performed: ERCP with biliary sphincterotomy and balloon extraction Preoperative diagnoses: Elevated LFTs/jaundice and MRCP showing CBD stones IV sedation per anesthesia: Procedure: After informed consent was obtained from the patient and after the risks benefits and complications including bleeding perforation and pancreatitis explained in detail the patient was brought into the endoscopy unit. The patient was placed in prone position and IV conscious sedation was administered by anesthesia under continuous monitoring. The Olympus side-viewing duodenoscope was then inserted into the mouth and esophagus intubated without any difficulty. The scope was gradually advanced into the stomach and duodenum. The major papilla was identified without any difficulty. initial cannulation opacified the pancreatic duct that appeared normal. Subsequent cannulation opacified the common bile duct which appears slightly dilated measuring 6-7 mm in diameter but no obvious filling defects were identified. Because of the findings of the MRCP and proceed with a biliary sphincterotomy which was performed over a guidewire and was extended to 1 cm. Following this a 9 mm balloon was passed into the proximal CBD and gently withdrawn and I did not see any stones exiting the ampulla. An occlusion collagenous and was performed and appeared normal. Patient tolerated the procedure well. Impression: 1. Normal pancreatic duct 2. Slightly dilated common bile duct with no filling defects status post biliary sphincterotomy and balloon extraction as described Recommendations: The findings of this examination were discussed with the patient .repeat labs in the morning and start him on a clear liquid diet.
--- NOTE | 2017-03-31 14:27 | FL ---
EXAMINATION TYPE: FL ERCP biliary duct only DATE OF EXAM: 03/31/2017 CLINICAL HISTORY: Common bile duct stones TECHNIQUE: Fluoroscopy. COMPARISON: MRCP from 2 days ago. FINDINGS: Fluoroscopic guidance was provided during ERCP procedure performed by Dr. Giron. A total of 17 seconds of fluoroscopic time was utilized during the procedure and 1 spot intraoperative image is acquired. Single image shows cannulation of common bile duct and ampulla which does not appear shannan piciously dilated. Tiny stones on MRCP are less well seen on ERCP image saved. IMPRESSION: As Above.
--- NOTE | 2017-03-31 17:13 | P.PN ---
Progress Note - Text Progress Note Date: 03/31/17 He underwent his ERCP today. Dr. Giron did not find any common bile duct stones. We will see what his liver function tests do. If they remain elevated this is likely a hepatocellular problem with incidental cholelithiasis. Further recommendations to follow.
[2017-04-01] MEDS: PIPERACILLIN-TAZOBACTAM 3.375 GM in DEXTROSE/WATER 1 50ML.BAG IVPB SCH (06:13)
[2017-04-01 07:29] VITALS: BP 121/77; PULSE 61; RESP 16; TEMP 97.8
[2017-04-01] MEDS: HEPARIN SODIUM,PORCINE 5,000 UNIT/ML 1 ML VIAL SQ SCH (07:29)
[2017-04-01] MEDS: PANTOPRAZOLE 40 MG TABLET PO SCH (07:29)
[2017-04-01] MEDS: HYDROmorphone 0.5 MG/0.5 ML SYRINGE IVP PRN ×2 (07:29→10:37)
[2017-04-01 08:15] LABS: Basophils % (A) 1 %; CH 31.3; CHCM 34.2; Eosinophils # (A) 0.3 k/uL (0-0.7); Eosinophils % (A) 6 %; HCT 43.3 % (39.0-53.0); HDW 2.58; HGB 14.2 gm/dL (13.0-17.5); Luc # (Auto) 0.12; Luc % (Auto) 2; Lymphocytes # (A) 1.4 k/uL (1.0-4.8); Lymphocytes % (A) 25 %; MCH 30.2 pg (25.0-35.0); MCHC 32.8 g/dL (31.0-37.0); Mean Platelet Volume 7.1; Monocytes # (A) 0.4 k/uL (0-1.0); Monocytes % (A) 7 %; Neutrophils # (A) 3.4 k/uL (1.3-7.7); Neutrophils % (A) 60 %; RBC 4.71 m/uL (4.30-5.90); RDW 13.6 % (11.5-15.5); WBC 5.6 k/uL (3.8-10.6); WBC (Perox) 5.49
[2017-04-01 08:30] LABS: ALT 631 U/L (21-72); AST 185 U/L (17-59); Alkaline Phosphatase 105 U/L (38-126); Anion Gap 11 mmol/L; Blood Urea Nitrogen 11 mg/dL (9-20); Calcium 9.4 mg/dL (8.4-10.2); Carbon Dioxide 23 mmol/L (22-30); Chloride 105 mmol/L (98-107); Glucose 115 mg/dL (74-99); Non-African American GFR(MDRD) 51 (>60 ml/min/1.73 sqM); Potassium 3.8 mmol/L (3.5-5.1); Sodium 139 mmol/L (137-145); Total Bilirubin 2.3 mg/dL (0.2-1.3); Total Protein 6.6 g/dL (6.3-8.2)
[2017-04-01] MEDS: LACTATED RINGERS 1,000 ML IV SCH (09:58)
[2017-04-01] MEDS: SODIUM CHLORIDE 0.9% 1,000 ML IV SCH (09:58)
--- NOTE | 2017-04-01 12:15 | P.DS ---
Providers Date of admission: 03/28/17 12:53 Expected date of discharge: 04/01/17 Attending physician: Valerie Belcher Consults: 03/28/17 12:53 Consult Physician Stat Consulting Provider: Yamel Tapia Consult Reason/Comments: Cholecystitis Do you want consulting provider notified?: Yes Consult Physician Stat Consulting Provider: Dipti Giron Consult Reason/Comments: Cholecystitis Do you want consulting provider notified?: Yes Primary care physician: Valerie Belcher Hospital Course: 1. Cholelithiasis 2. Acute hepatitis with hyperbilirubinemia 3. Abdominal pain 4. Essential hypertension: Blood pressure within acceptable range 5. Mixed hyperlipidemia 6. Acute kidney injury 7. Hepatosplenomegaly Patient was seen and evaluated by general surgery. Acute cholecystitis ruled out clinically. Viral hepatitis panel negative. MRCP showed evidence of cholelithiasis with thickened gallbladder wall. Patient was seen by GI and underwent an ERCP with biliary sphincterectomy. He was cleared for discharge home. Liver function tests trending down. He will follow-up with me in the office next week for repeat liver function test. We will continue to hold Lipitor and Tylenol. Patient Condition at Discharge: Fair Plan - Discharge Summary Discharge Rx Participant: No New Discharge Prescriptions: Continue Atenolol/Chlorthalidone [Atenolol-Chlorthalidone 50-25] 1 tab PO DAILY Omeprazole [PriLOSEC] 20 mg PO DAILY Cyclobenzaprine [Flexeril] 10 mg PO BID #60 tablet Meloxicam [Mobic] 7.5 mg PO BID #60 tab Discontinued HYDROcodone/APAP 10-325MG [[place] 10-325] 1 tab PO Q6H PRN #20 tab PRN Reason: Pain Lovastatin [Mevacor] 20 mg PO DAILY Fenofibrate 160 mg PO DAILY No Action Ranitidine HCl [Zantac] 150 mg PO DAILY PRN PRN Reason: Heartburn/Acid Reflux Ergocalciferol (Vitamin D2) [Vitamin D2] 50,000 unit PO MO Discharge Medication List Atenolol/Chlorthalidone [Atenolol-Chlorthalidone 50-25] 1 tab PO DAILY 11/27/15 [History] Omeprazole [PriLOSEC] 20 mg PO DAILY 11/27/15 [History] Cyclobenzaprine [Flexeril] 10 mg PO BID #60 tablet 01/29/16 [Rx] Meloxicam [Mobic] 7.5 mg PO BID #60 tab 01/29/16 [Rx] Ergocalciferol (Vitamin D2) [Vitamin D2] 50,000 unit PO MO 03/28/17 [History] Ranitidine HCl [Zantac] 150 mg PO DAILY PRN 03/28/17 [History] Follow up Appointment(s)/Referral(s): Yamel Tapia DO [Doctor of Osteopathic Medicine] - 2 Weeks (Have blood draw 1-2 days prior to appointment) Valerie Belcher MD [Primary Care Provider] - 1 Week Ambulatory/Diagnostic Orders: Comprehensive Metabolic Panel [LAB.AMB] Location: Determined By Patient Patient Instructions/Handouts: Cholecystitis (GEN) Activity/Diet/Wound Care/Special Instructions: Low fat diet. Discharge Disposition: HOME SELF-CARE
--- NOTE | 2017-04-01 13:11 | P.PN ---
Subjective Progress Note Date: 04/01/17 Principal diagnosis: Abdominal pain jaundice Status post ERCP with sphincterotomy yesterday with improvement in liver numbers this point. Abdominal pain improved. Tolerating diet. Afebrile. Objective - Vital Signs Vital signs: Vital Signs Temp 97.8 F 04/01/17 07:00 Pulse 61 04/01/17 07:00 Resp 16 04/01/17 07:00 BP 121/77 04/01/17 07:00 Pulse Ox 98 04/01/17 07:00 Intake & Output 03/31/17 04/01/17 04/01/17 18:59 06:59 18:59 Intake Total 300 1200 Balance 300 1200 Weight 102 kg Intake: IV 300 Oral 1200 Other: # Voids 1 2 1 - Exam General appearance: The patient is alert, oriented, in no acute distress. Jaundice. HET: Head is normocephalic and atraumatic. Pupils are equal and reactive. Sclerae icterus. Oropharynx is clear without lesions. Neck: Supple without lymphadenopathy. Trachea midline. Heart: S1 S2. Regular rate and rhythm. Lungs: No crackles or wheezes are heard. Abdomen: Soft, midepigastric tenderness, nondistended with bowel sounds. No peritoneal signs. No palpable organomegaly or masses. Extremities: Normal skin color and turgor. No cyanosis, rash, ulceration, clubbing, or edema. Radial and pedal pulses are 2/4 bilaterally. Neurological: No focal deficits. Strength and sensation are grossly intact. - Labs CBC & Chem 7: 04/01/17 07:41 04/01/17 07:41 Labs: Abnormal Lab Results - Last 24 Hours (Table) 04/01/17 Range/Units 07:41 Creatinine 1.46 H (0.66-1.25) mg/dL Glucose 115 H (74-99) mg/dL Total Bilirubin 2.3 H (0.2-1.3) mg/dL AST 185 H (17-59) U/L ALT 631 H (21-72) U/L Microbiology - Last 24 Hours (Table) 03/28/17 13:08 Blood Culture - Preliminary Blood No Growth after 72 hours Assessment and Plan (1) Choledocholithiasis Narrative/Plan: 51-year-old male admitted with acute abdominal pain jaundice with worsenign liver function tests. MRCP indicated cholelithiasis and choledocholithiasis with underlying history of EtOH abuse. Suspect component of superimposed acute alcohol hepatitis intubating to his elevated liver function tests and jaundice. Status post ERCP with sphincterotomy. Current Visit: Yes Status: Acute Code(s): K80.50 - CALCULUS OF BILE DUCT W/ O CHOLANGITIS OR CHOLECYST W/O OBST SNOMED Code(s): 743055287 (2) ETOH abuse Current Visit: Yes Status: Acute Code(s): F10.10 - ALCOHOL ABUSE, UNCOMPLICATED SNOMED Code(s): 59715353 (3) Abdominal pain Current Visit: Yes Status: Acute Code(s): R10.9 - UNSPECIFIED ABDOMINAL PAIN SNOMED Code(s): 31782245 (4) Cholelithiasis Current Visit: Yes Status: Acute Code(s): K80.20 - CALCULUS OF GALLBLADDER W /O CHOLECYSTITIS W/O OBSTRUCTION SNOMED Code(s): 441792504 Plan: 1. Discharge per medicine and surgery. Alcohol abstinence reinforced. Assessment and plan a care discussed with Dr. Giron
== END 2017-04-01 13:36 | disposition home or self-care (01) ==
LOC: EC 10:20 → 4MS4W 12:53
PROVIDERS: ADMIT Internal Medicine; ATTEND Internal Medicine
PROC: 0F798ZZ Dilation of Common Bile Duct, Via Natural or Artificial Opening Endoscopic (ICD-10-PCS; principal; 2017-03-31 14:20)
DX: K80.62 Calculus of gallbladder and bile duct with acute cholecystitis without obstruction (principal); N17.9 Acute kidney failure, unspecified; K76.0 Fatty (change of) liver, not elsewhere classified; I10 Essential (primary) hypertension; J45.909 Unspecified asthma, uncomplicated; B17.9 Acute viral hepatitis, unspecified; E78.2 Mixed hyperlipidemia; F10.10 Alcohol abuse, uncomplicated; R16.2 Hepatomegaly with splenomegaly, not elsewhere classified; M47.9 Spondylosis, unspecified; K21.9 Gastro-esophageal reflux disease without esophagitis; F41.9 Anxiety disorder, unspecified; F32.9 Major depressive disorder, single episode, unspecified; Z87.891 Personal history of nicotine dependence; I25.2 Old myocardial infarction; Z85.828 Personal history of other malignant neoplasm of skin; Z82.49 Family history of ischemic heart disease and other diseases of the circulatory system; Z79.899 Other long term (current) drug therapy; Z79.891 Long term (current) use of opiate analgesic; Z88.6 Allergy status to analgesic agent; Z88.0 Allergy status to penicillin
CPT/HCPCS: 36415; 43262; 74000; 74181; 74328; 76705; 80053; 80074; 81001; 82150; 82248; 83690; 85025; 85610; 85730; 87040; 96361; 96365; 96375; 96376; 99285

== ENCOUNTER → 2017-04-12 | Outpatient (CLI) | payer OTHER ==
[2017-04-12 14:41] LABS: ALT 159 U/L (21-72); AST 64 U/L (17-59); Alkaline Phosphatase 103 U/L (38-126); Anion Gap 16 mmol/L; Blood Urea Nitrogen 20 mg/dL (9-20); Calcium 10.7 mg/dL (8.4-10.2); Carbon Dioxide 24 mmol/L (22-30); Chloride 101 mmol/L (98-107); Glucose 108 mg/dL (74-99); Non-African American GFR(MDRD) 53 (>60 ml/min/1.73 sqM); Potassium 4.3 mmol/L (3.5-5.1); Sodium 141 mmol/L (137-145); Total Bilirubin 1.1 mg/dL (0.2-1.3); Total Protein 7.9 g/dL (6.3-8.2)
== END | disposition home or self-care (01) ==
LOC: LABWHC1 14:01
PROVIDERS: ATTEND Internal Medicine
DX: K81.0 Acute cholecystitis (principal)
CPT/HCPCS: 36415; 80053

== ENCOUNTER → 2018-06-16 | Day surgery (SDC) | payer OTHER ==
[2018-06-14 11:47] VITALS: BMI 31.8
[~2018-06-16] MED LIST: LIDOCAINE 1% 20 ML VIAL (10MG/ML) FOR IV START INTRADERMA PRN; LIDOCAINE 1% INJ 10MG/ML (20 ML MDV) ONE; PROPOFOL 10 MG/ML 20 ML VIAL IV ONE
[2018-06-16 07:49] VITALS: RESP 16; TEMP 98
[2018-06-16] MEDS: LACTATED RINGERS 1,000 ML IV SCH ×2 (07:55→08:53)
--- NOTE | 2018-06-16 09:21 | P.PCN ---
Date of Procedure: 06/16/18 Procedure(s) Performed: Procedure: Esophagogastroduodenoscopy and biopsy. Preoperative diagnosis: Symptomatic gastroesophageal reflux disease. Preoperative diagnosis: 1. Small sliding hiatal hernia with no obvious esophagitis or complicated reflux disease. 2. Mild antral gastritis. 3. Multiple biopsies obtained from the duodenum, antrum and esophagus. Preparation: HalfLytely prep. Sedation: Was provided by anesthesia. Brief clinical history: The patient is a 52-year-old male who was evaluated earlier this month for heartburn, nausea and vomiting. The patient was taking omeprazole and it had to be stopped because of chronic kidney disease. Pepcid was tried but it did not help. He has no alarm symptoms. He is not symptomatic if he takes on omeprazole. This evaluation is to assess for esophagitis, complicated reflux disease and to rule out other pathology and guide therapy. Procedure: With the patient on his left lateral decubitus position and after informed consent and adequate sedation, I passed the Olympus-GIF 190 H video upper endoscope through the cricopharyngeus down the esophagus. GE junction was irregular and started around 40 cm from the incisors and there was a small sliding hiatal hernia but no obvious esophagitis or complicated reflux disease. The endoscope was then passed into the stomach which was insufflated with air and inspected in detail including the retroflex view in the cardia. There was some mottling and erythema in the antrum but no ulcers or erosions. Pyloric channel, duodenal bulb, post bulbar area and descending duodenum appeared within normal limits. Because of his symptoms, I obtained biopsies from the duodenum, antrum and esophagus then the endoscope was withdrawn. The patient tolerated the procedure well. Plan: The patient was reassured. Will await biopsy results and make further plans based on his course and biopsy results.
[2018-06-16 09:22] VITALS: BP 117/60; PULSE 66
== END ==
LOC: ORWHC2ENDO 07:31
DX: K29.50 Unspecified chronic gastritis without bleeding (principal); K44.9 Diaphragmatic hernia without obstruction or gangrene; K21.9 Gastro-esophageal reflux disease without esophagitis; I25.10 Atherosclerotic heart disease of native coronary artery without angina pectoris; I12.9 Hypertensive chronic kidney disease with stage 1 through stage 4 chronic kidney disease, or unspecified chronic kidney disease; N18.9 Chronic kidney disease, unspecified; I25.2 Old myocardial infarction; F17.200 Nicotine dependence, unspecified, uncomplicated; Z79.891 Long term (current) use of opiate analgesic; Z79.899 Other long term (current) drug therapy; Z88.5 Allergy status to narcotic agent; Z88.0 Allergy status to penicillin
CPT/HCPCS: 88305; 43239; J2001; J2704

== ENCOUNTER 2018-08-29 09:03 | Emergency (ER) | payer OTHER ==
[2018-08-29 09:12] VITALS: BP 146/88; PULSE 66; RESP 18; TEMP 98.2
[2018-08-29] MEDS ORDERED: PENICILLIN VK 500MG STARTER 4 TAB BTL PO STA (09:34)
--- NOTE | 2018-08-29 09:45 | ED ---
General Adult HPI - General Chief complaint: Dental/Oral Stated complaint: Dental Pain Time Seen by Provider: 08/29/18 09:12 Source: patient, RN notes reviewed Mode of arrival: ambulatory Limitations: no limitations - History of Present Illness Initial comments: 53-year-old male presents to the emergency department for a chief complaint of tooth pain times one year. Patient states that he was told he needed a deep dental cleaning year ago and the pain started at that time. Patient states he has pain along 3 teeth on the top of his right-sided mild in 3 teeth in the bottom of his right-sided mouth. Patient states that this has been worsening progressively. He states that it is sensitive to hot and cold. Patient takes Percocet 10 for his back pain that he states is not helping his tooth pain. Patient has not followed up with a dentist for this.Patient has no other complaints at this time including shortness of breath, chest pain, abdominal pain, nausea or vomiting, headache, or visual changes. - Related Data Home Medications Medication Instructions Recorded Confirmed Atenolol/Chlorthalidone 1 tab PO DAILY 11/27/15 06/16/18 [Atenolol-Chlorthalidone 50-25] Omeprazole [PriLOSEC] 20 mg PO DAILY 11/27/15 06/16/18 Ergocalciferol (Vitamin D2) 50,000 unit PO MO 03/28/17 06/16/18 [Vitamin D2] Ranitidine HCl [Zantac] 150 mg PO DAILY PRN 03/28/17 06/16/18 Fenofibrate Dose Unknown 1 tab PO DAILY 06/14/18 06/16/18 oxyCODONE-APAP 10-325MG [Percocet 1 tab PO Q6HR PRN 06/14/18 06/16/18 10-325 mg] Previous Rx's Medication Instructions Recorded Cyclobenzaprine [Flexeril] 10 mg PO BID #60 tablet 01/29/16 Penicillin V Potassium [Pen Vee K] 500 mg PO Q6H 10 Days #40 tablet 08/29/18 Allergies Allergy/AdvReac Type Severity Reaction Status Date / Time codeine Allergy Rash/Hives Verified 08/29/18 09:27 Penicillins Allergy Unknown Verified 08/29/18 09:27 Childhood Review of Systems ROS Statement: Those systems with pertinent positive or pertinent negative responses have been documented in the HPI. ROS Other: All systems not noted in ROS Statement are negative. Past Medical History Past Medical History: Asthma, Cancer, Chest Pain / Angina, GERD/Reflux, Hypertension, Myocardial Infarction ([place]), Musculoskeletal Disorder Additional Past Medical History / Comment(s): Degenerative joint disease in his back, elevated liver function tests, KIDNEY'S AT ABOUT 39% PER PT, SKIN CANCER Last Myocardial Infarction Date:: August 2014 History of Any Multi-Drug Resistant Organisms: None Reported Past Surgical History: Heart Catheterization Additional Past Surgical History / Comment(s): LT Eye - Has Nylon Screen from Inj at 16 yrs old. PAIN PROC, LAST ON 12/03/15. Skin cancer removal Past Anesthesia/Blood Transfusion Reactions: No Reported Reaction Past Psychological History: Anxiety, Depression Smoking Status: Current some day smoker Past Alcohol Use History: None Reported Past Drug Use History: None Reported - Past Family History Father Family Medical History: Coronary Artery Disease (CAD), Myocardial Infarction ([place]) Additional Family Medical History / Comment(s): Father has 3 coronary stents. Mother Additional Family Medical History / Comment(s): Mother has irregular heart beat, had tx for this . General Exam Limitations: no limitations General appearance: alert, in no apparent distress Head exam: Present: atraumatic, normocephalic, normal inspection Eye exam: Present: normal appearance, PERRL, EOMI. Absent: scleral icterus, conjunctival injection, periorbital swelling ENT exam: Present: normal exam, mucous membranes moist, TM's normal bilaterally, normal external ear exam. Absent: normal oropharynx (Patient has poor dentition. Tenderness when biting down on a tongue blade on the right side. No dental abscesses along the upper or lower gumline.) Neck exam: Present: normal inspection, full ROM. Absent: tenderness, meningismus, lymphadenopathy Respiratory exam: Present: normal lung sounds bilaterally. Absent: respiratory distress, wheezes, rales, rhonchi, stridor Cardiovascular Exam: Present: regular rate, normal rhythm, normal heart sounds. Absent: systolic murmur, diastolic murmur, rubs, gallop, clicks Neurological exam: Present: alert, oriented X3, CN II-XII intact Psychiatric exam: Present: normal affect, normal mood Course Vital Signs 08/29/18 09:09 Temperature 98.2 F Pulse Rate 66 Respiratory 18 Rate Blood Pressure 146/88 O2 Sat by Pulse 97 Oximetry Medical Decision Making - Medical Decision Making 53-year-old male presents to the emergency department for chief complaint of tooth pain times one year. This started after dental cleaning a year ago. It has been worsening since that time. No fevers or chills. Pain worsens to hot or cold. Patient states he has pain along teeth 29-32 and teeth 2-4. No tenderness over the TMJ. No dysfunction of the TMJ noted. No abscesses noted. Poor dentition in general. Patient will be treated with penicillin. However I did discuss the need to follow-up with the dentist as soon as possible. I discussed returning if patient has any worsening symptoms that he agrees to do. He denies any neck pain, difficulty swallowing. He will continue to take his Percocet tens for the pain. Educated on ice therapy. Patient was told his mother had a penicillin ALLERGY so he never used use penicillins. However his doctor try him on amoxicillin and other penicillins and he has not had a reaction, not ALLERGIC to penicillin. Disposition Clinical Impression: Chronic dental pain Disposition: HOME SELF-CARE Condition: Good Instructions (If sedation given, give patient instructions): Toothache (ED) Additional Instructions: Please take home pain medications for pain. Take penicillin as directed. Follow-up with dentist in 1-2 days. Return here to the emergency department if you have any worsening symptoms. Prescriptions: Penicillin V Potassium [Pen Vee K] 500 mg PO Q6H 10 Days #40 tablet Is patient prescribed a controlled substance at d/c from ED?: No Referrals: Jennifer Irwin MD [Primary Care Provider] - 1-2 days Time of Disposition: 09:48
== END 2018-08-29 09:55 | disposition home or self-care (01) ==
LOC: EC 09:03
DX: K08.89 Other specified disorders of teeth and supporting structures (principal); G89.29 Other chronic pain; M54.9 Dorsalgia, unspecified; I10 Essential (primary) hypertension; K21.9 Gastro-esophageal reflux disease without esophagitis; I25.2 Old myocardial infarction; F17.200 Nicotine dependence, unspecified, uncomplicated; Z88.5 Allergy status to narcotic agent; Z79.891 Long term (current) use of opiate analgesic; Z79.899 Other long term (current) drug therapy; Z85.828 Personal history of other malignant neoplasm of skin; Z95.818 Presence of other cardiac implants and grafts; Z98.890 Other specified postprocedural states
CPT/HCPCS: 99282

== ENCOUNTER 2019-06-18 13:27 | Emergency (ER) | payer OTHER ==
[2019-06-18 13:32] VITALS: TEMP 97.7
[2019-06-18] MEDS ORDERED: LIDOCAINE 1% INJ 10MG/ML (20 ML MDV) SQ ONE (14:35)
[2019-06-18] MEDS ORDERED: CEPHALEXIN 500 MG CAP PO STA (14:36)
--- NOTE | 2019-06-18 15:16 | ED ---
General Adult HPI - General Chief complaint: Skin/Abscess/Foreign Body Stated complaint: Leg Abscess Time Seen by Provider: 06/18/19 13:30 Source: patient Mode of arrival: ambulatory Limitations: no limitations - History of Present Illness Initial comments: The patient is a 53-year-old male with past medical history of hypertension who presents to the emergency room with reported abscess to his right knee. He states that the abscess has been present for the past 4 days. It started off as a small pimple which increased in size. He then developed significant redness around the site. Yesterday he was able to open the abscess and did receive some pustular drainage from the site. No history of similar in the past. Denies a history of MRSA. No pain with range of motion testing of the right knee. No additional lesions on his body. He denies any fevers or chills. No nausea or vomiting. No calf pain or swelling. There are no alleviating, precipitating or modifying factors - Related Data Home Medications Medication Instructions Recorded Confirmed Atenolol/Chlorthalidone 1 tab PO DAILY 11/27/15 08/29/18 [Atenolol-Chlorthalidone 50-25] Omeprazole [PriLOSEC] 20 mg PO DAILY 11/27/15 08/29/18 Ergocalciferol (Vitamin D2) 50,000 unit PO MO 03/28/17 08/29/18 [Vitamin D2] Ranitidine HCl [Zantac] 150 mg PO BID 03/28/17 08/29/18 oxyCODONE-APAP 10-325MG [Percocet 1 tab PO QID 06/14/18 08/29/18 10-325 mg] Cetirizine HCl [Zyrtec] 10 mg PO DAILY 08/29/18 08/29/18 Latanoprost [Xalatan 0.005%] 1 drop LEFT EYE HS 08/29/18 08/29/18 Previous Rx's Medication Instructions Recorded Penicillin V Potassium [Pen Vee K] 500 mg PO Q6H 10 Days #40 tablet 08/29/18 Cephalexin [Keflex] 500 mg PO Q6HR #28 cap 06/18/19 Allergies Allergy/AdvReac Type Severity Reaction Status Date / Time codeine Allergy Rash/Hives Verified 06/18/19 13:32 Review of Systems ROS Statement: Those systems with pertinent positive or pertinent negative responses have been documented in the HPI. ROS Other: All systems not noted in ROS Statement are negative. Past Medical History Past Medical History: Asthma, Cancer, Chest Pain / Angina, GERD/Reflux, Hypertension, Myocardial Infarction ([place]), Musculoskeletal Disorder Additional Past Medical History / Comment(s): Degenerative joint disease in his back, elevated liver function tests, KIDNEY'S AT ABOUT 39% PER PT, SKIN CANCER Last Myocardial Infarction Date:: August 2014 History of Any Multi-Drug Resistant Organisms: None Reported Past Surgical History: Heart Catheterization Additional Past Surgical History / Comment(s): LT Eye - Has Nylon Screen from Inj at 16 yrs old. PAIN PROC, LAST ON 12/03/15. Skin cancer removal Past Anesthesia/Blood Transfusion Reactions: No Reported Reaction Past Psychological History: Anxiety, Depression Smoking Status: Current some day smoker Past Alcohol Use History: None Reported Past Drug Use History: Marijuana - Past Family History Father Family Medical History: Coronary Artery Disease (CAD), Myocardial Infarction ([place]) Additional Family Medical History / Comment(s): Father has 3 coronary stents. Mother Additional Family Medical History / Comment(s): Mother has irregular heart beat, had tx for this . General Exam Limitations: no limitations General appearance: alert, in no apparent distress Respiratory exam: Present: normal lung sounds bilaterally Cardiovascular Exam: Present: regular rate, normal rhythm Extremities exam: Present: other (Patient has an area of 5 x 4 cm redness in infrapatellar region of the right knee. It has a central scab over an area of fluctuance. This is compatable with an abscess with surrounding cellulitis. There is no swelling of the knee joint. Patient has 5/5 muscle strength in the bilateral lower extremities. No painful range of motion. 2+ DP and PT pulses. ) Neurological exam: Present: alert, oriented X3 Psychiatric exam: Present: normal affect, normal mood Course Vital Signs 06/18/19 06/18/19 06/18/19 13:28 13:31 14:31 Temperature 97.7 F Pulse Rate 75 72 Respiratory 18 20 20 Rate Blood Pressure 134/76 137/75 O2 Sat by Pulse 96 99 Oximetry Procedures - Incision & Drainage Consent Obtained: verbal consent Site: lower extremity Size (cm): 3 (cm) Anesthetic Used: lidocaine 1% Amount (mLs): 8 (ml) I&D Cleaning Method: Alcohol Wipe Sterile Field Used?: Yes Scalpel Used: #15 Needle Aspiration Performed?: No Irrigation Performed?: No I&D Drainage Obtained: Pus, Blood Culture Obtained?: Yes Patient Tolerated Procedure: well, no complications Medical Decision Making - Medical Decision Making Upon arrival the patient was placed into room 18. A thorough history and physical exam was performed. The patient does have a notable abscess identified to the right lateral infrapatellar region. It does not involve the joint. There is no joint pain with range of motion testing. No joint swelling. I did ultrasound the area which demonstrates small fluid collection within the subcutaneous tissue. I did recommend I + D. Which the which the patient agreed to. 8 mL of lidocaine was injected to the site. I did use an 18-gauge needle to unroof the scab. I then used a 15 blade scalpel to make a small yuri deep into the subcutaneous tissue. I obtained a culture. The patient was given a dose of keflex in the ED and will be provided with a full rx for Keflex. Follow up with his PCP in 2-4 days. return to the ED for any new or worsening symptoms. Patient discharged in stable condition. Disposition Clinical Impression: Abscess of right leg Disposition: HOME SELF-CARE Condition: Stable Instructions (If sedation given, give patient instructions): Abscess Incision and Drainage (ED), Abscess (ED) Additional Instructions: Please take the medications as prescribed. Follow-up with your primary care doctor in 2-4 days for reevaluation. Return to the emergency room for any new worsening symptoms Prescriptions: Cephalexin [Keflex] 500 mg PO Q6HR #28 cap Is patient prescribed a controlled substance at d/c from ED?: No Referrals: Jennifer Irwin MD [Primary Care Provider] - 1-2 days Time of Disposition: 15:16
[2019-06-18 15:26] VITALS: BP 137/75; PULSE 72; RESP 20
== END 2019-06-18 15:35 | disposition home or self-care (01) ==
LOC: EC 13:27
DX: L02.415 Cutaneous abscess of right lower limb (principal); K21.9 Gastro-esophageal reflux disease without esophagitis; I10 Essential (primary) hypertension; I25.2 Old myocardial infarction; F17.200 Nicotine dependence, unspecified, uncomplicated; Z95.818 Presence of other cardiac implants and grafts; Z85.828 Personal history of other malignant neoplasm of skin; Z79.891 Long term (current) use of opiate analgesic; Z79.899 Other long term (current) drug therapy; Z88.5 Allergy status to narcotic agent
CPT/HCPCS: 87070; 87205; 87077; 87186; 99284; 10060; J2001

== ENCOUNTER → 2019-08-04 | Outpatient (CLI) | payer OTHER ==
--- NOTE | 2019-08-04 13:14 | MR ---
EXAMINATION TYPE: MR knee RT wo con DATE OF EXAM: 08/04/2019 COMPARISON: X-rays of the right knee dated 06/30/2019 HISTORY: Right knee pain TECHNIQUE: Multiplanar, multisequence imaging of the right knee is performed without IV contrast. FINDINGS: MEDIAL MENISCUS: Anterior and posterior horns are intact without tear. There is some high signal in t he posterior horn of the medial meniscus compatible with myxoid degeneration. LATERAL MENISCUS: Anterior and posterior horns are intact without tear. As seen on the medial meniscu s there is also high signal in the posterior horn of the lateral meniscus and meniscal body indicativ e of myxoid degeneration. Some fraying is seen along the body of the lateral meniscus at the femoral articular surface. CRUCIATE LIGAMENTS: The anterior and posterior cruciate ligaments are intact and unremarkable. COLLATERAL LIGAMENTS: The medial collateral ligament and lateral collateral ligament complex are inta ct and unremarkable. EXTENSOR MECHANISM: Visualized quadriceps and patellar tendons are intact. EFFUSION: No significant suprapatellar joint effusion. POPLITEAL CYST: Very small popliteal cyst. TRICOMPARTMENT SPACES: Aligned. Small lateral compartment and patellofemoral compartment osteophytes. CARTILAGE: The lateral compartment cartilage is very mildly heterogenous but otherwise unremarkable. There is multifocal fissuring of the weightbearing surface of the medial compartment cartilage with u nderlying subchondral cyst formation. There is also slight global thinning and heterogeneity without measurable defect. Patellofemoral compartment demonstrates partial thickness defect measuring 1.1 cm on the lateral facet and medial facet 4 mm partial-thickness chondral defect. Deep to this there is e niurka subchondral cyst formation. Trochlear cartilage is maintained. BONE MARROW SIGNAL: Subchondral cyst formation of the patella and medial femoral condyle as discussed in the cartilage section. T1/T2 hypointense well-circumscribed subcentimeter probable bone island of the lateral femoral condyle. IMPRESSION: 1. 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 There also appears to be fraying along the femoral ar ticular surface of the body of the lateral meniscus. 2. Mild bicompartmental arthropathy and tricompartmental chondrosis with subchondral cyst formation d ue to multifocal chondral fissuring of the medial femoral condyle and patella.
== END | disposition home or self-care (01) ==
LOC: RADMRIMAIN 11:41
PROVIDERS: ATTEND Orthopaedic Surgery
DX: M23.321 Other meniscus derangements, posterior horn of medial meniscus, right knee (principal); M23.351 Other meniscus derangements, posterior horn of lateral meniscus, right knee; M17.11 Unilateral primary osteoarthritis, right knee

== ENCOUNTER → 2019-11-22 | Outpatient (CLI) | payer OTHER ==
[2019-11-22 12:13] LABS: Basophils % (A) 0 %; Eosinophils # (A) 0.2 k/uL (0-0.7); Eosinophils % (A) 4 %; HCT 43.3 % (39.0-53.0); HGB 15.1 gm/dL (13.0-17.5); Lymphocytes # (A) 2.1 k/uL (1.0-4.8); Lymphocytes % (A) 33 %; MCH 31.2 pg (25.0-35.0); MCHC 34.9 g/dL (31.0-37.0); MCV 89.4 fL (80.0-100.0); Monocytes # (A) 0.6 k/uL (0-1.0); Monocytes % (A) 9 %; Neutrophils # (A) 3.1 k/uL (1.3-7.7); Neutrophils % (A) 51 %; Platelet Count 304 k/uL (150-450); RBC 4.84 m/uL (4.30-5.90); WBC 6.2 k/uL (3.8-10.6)
[2019-11-22 12:38] LABS: Potassium 3.9 mmol/L (3.5-5.1)
== END | disposition home or self-care (01) ==
LOC: LABWHC1 10:36
PROVIDERS: ATTEND Orthopaedic Surgery
DX: Z01.818 Encounter for other preprocedural examination (principal); M23.91 Unspecified internal derangement of right knee
CPT/HCPCS: 36415; 80051; 85025; 93005

== ENCOUNTER 2019-11-23 10:07 | Day surgery (SDC) | payer OTHER ==
[2019-11-22 09:19] VITALS: BMI 29.2
--- NOTE | 2019-11-22 14:10 | HP ---
HISTORY AND PHYSICAL Surgery 11/23/2019. Wyatt Louis is a 54-year-old patient seen with progressive right knee pain. We discussed options for treatment. He elected to proceed with arthroscopy. Consent regarding the procedure was obtained. PAST MEDICAL HISTORY: Hypertension. PAST SURGICAL HISTORY: Cholecystectomy, herniorrhaphy. MEDICATIONS: Atenolol, [place], Zyrtec. ALLERGIES: CODEINE. SOCIAL HISTORY: Smokes half pack of cigarettes daily. PHYSICAL EXAMINATION: Evaluation of the right knee is range of motion 0-130. There is a mild effusion. Tenderness medial joint line. Positive medial Demetrio's. Ligaments stable. Hip rotation without pain. Distal neurovascular exam intact. X-rays of the right knee revealed mild osteoarthritis. Right knee MRI revealed lateral meniscal tear, possible medial meniscal tear and osteochondral defect of the patella. IMPRESSION: 1. Internal derangement, right knee with lateral meniscal tear, probable osteochondral tear. 2. Hypertension. 3. Tobacco use. PLAN: Right knee arthroscopy with partial meniscectomy, chondroplasty, partial synovectomy and debridement. MMODL / IJN: [id number] /
[2019-11-23] MEDS ORDERED: ONDANSETRON 4 MG/2 ML VIAL ONE (10:47)
[2019-11-23] MEDS ORDERED: LIDOCAINE 1% (10MG/ML) FOR IV START INTRADERMA ONE (11:04)
[2019-11-23] MEDS ORDERED: DEXAMETHASONE SOD PHOSPHATE 10 MG/ML 1 ML VIAL IV ONE (11:05)
[2019-11-23] MEDS ORDERED: LACTATED RINGERS 1,000 ML IV ONE (11:06)
[2019-11-23] MEDS ORDERED: MIDAZOLAM 2 MG/2 ML VIAL ONE (12:13)
[2019-11-23] MEDS ORDERED: PROPOFOL 10 MG/ML 20 ML VIAL IV ONE (12:13)
[2019-11-23] MEDS ORDERED: KETOROLAC 30 MG/ML 1 ML VIAL ONE (12:13)
[2019-11-23] MEDS ORDERED: fentaNYL (PF) 50 MCG/ML 2 ML AMP ONE (12:13)
[2019-11-23] MEDS ORDERED: BUPIVACAIN-EPI 0.25%-1:200,000 30 ML VIAL INTRAARTIC ONE (12:42)
[2019-11-23 13:07] VITALS: TEMP 97.1
[2019-11-23] MEDS: HYDROmorphone 2 MG/ML 1 ML SYRINGE IVP ONE ×4 (13:09→13:37)
--- NOTE | 2019-11-23 13:10 | P.OP ---
Date of Procedure: 11/23/19 Preoperative Diagnosis: Internal derangement right knee Postoperative Diagnosis: 1. Tear lateral meniscus right knee 2. Grade 2 chondromalacia medial femoral condyle right knee 3. Grade 2 chondromalacia patella right knee 4. Reactive synovitis medial, lateral and suprapatellar compartments right knee Procedure(s) Performed: 1. Arthroscopic partial lateral meniscectomy right knee 2. Arthroscopic chondroplasty medial femoral condyle right knee 3. Arthroscopic chondroplasty patella right knee 4. Arthroscopic partial synovectomy medial, lateral and suprapatellar compartments right knee Anesthesia: VERNONA, local Surgeon: Chad Pepe Estimated Blood Loss (ml): 5 Pathology: none sent Condition: stable Disposition: PACU Indications for Procedure: 54-year-old patient seen with progressive right knee pain. After treatment options were discussed with him, he elected to proceed with arthroscopy. Operative Findings: See description of procedure Description of Procedure: Patient was taken to the operative suite. Patient underwent a general anesthetic by the department of anesthesia. Patient was given preoperative antibiotics. The right lower extremity was placed in a well-padded arthroscopic leg villagran. The right leg was prepped and draped in the normal sterile orthopedic fashion. A lateral parapatellar and suprapatellar incision was made. Trochars were inserted. Arthroscopy was initiated. Suprapatellar pouch revealed diffuse thick reactive synovitis. The patellofemoral joint appeared to articulate congruently. There was grade 2 chondromalacia with some small osteochondral flap tears present. The scope was guided into the medial gutter. No loose bodies or plica were identified. The scope was then guided into the medial compartment. A medial parapatellar incision was made. Trocar inserted followed by probe. The medial meniscus was probed and found to be stable. There were grade 2 chondromalacia changes of the medial femoral condyle with diffuse osteochondral flap tears present. There was thick reactive synovitis anteriorly. I performed a chondroplasty of the medial femoral condyle. I performed a partial synovectomy decompressing reactive synovitis. The residual osteochondral surface was stable. There was good decompression of synovitis. Scope and probe were then guided into the intercondylar notch. Cruciates were identified, probed and found to be stable. The scope and probe were then guided into lateral compartment. There was a complex type tear mid body lateral meniscus. There were mild grade 1 chondromalacia changes of the lateral compartment with no osteochondral flap tears. There was thick reactive synovitis anteriorly. I performed a partial lateral meniscectomy. I performed a partial synovectomy. There was good decompression of the synovitis. The residual meniscus was stable. The scope was in guided back into the suprapatellar compartment. I introduced a motorize shaver into the superpatellar compartment. I debrided some piecemeal fragments of meniscus I encountered. I performed a chondroplasty of the patella. I performed a partial synovectomy. The shaver was removed. There was good decompression of synovitis. The residual osteochondral surface of the patella was stable. I took one more look on the entire knee, no residual debris. Instruments were now removed from the joint. The joint was infiltrated with .25% Marcaine. Steri- Strips were applied to the portal sites. Sterile dressings were applied. The patient was placed into a LJ hose. No tourniquet was utilized. The patient was awakened, transferred to a bed and taken to recovery stable satisfactory condition.
[2019-11-23 13:36] LABS: Glucose,Whole Blood 138 mg/dL (75-99)
[2019-11-23] MEDS ORDERED: HYDROcodone/APAP 10-325MG 1 EACH TAB ONE (14:01)
[2019-11-23 14:14] VITALS: BP 103/67; RESP 20
[2019-11-23 14:20] VITALS: PULSE 68
[2019-11-23] MEDS ORDERED: HYDROcodone/APAP 10-325MG 1 EACH TAB PO ONE (14:20)
== END 2019-11-23 14:35 | disposition home or self-care (01) ==
LOC: OR 10:07
PROVIDERS: ATTEND Orthopaedic Surgery
DX: S83.271A Complex tear of lateral meniscus, current injury, right knee, initial encounter (principal); S83.31XA Tear of articular cartilage of right knee, current, initial encounter; M17.11 Unilateral primary osteoarthritis, right knee; M94.261 Chondromalacia, right knee; M65.861 Other synovitis and tenosynovitis, right lower leg; I10 Essential (primary) hypertension; I25.2 Old myocardial infarction; J44.9 Chronic obstructive pulmonary disease, unspecified; K21.9 Gastro-esophageal reflux disease without esophagitis; F17.210 Nicotine dependence, cigarettes, uncomplicated; Z88.5 Allergy status to narcotic agent; Z90.49 Acquired absence of other specified parts of digestive tract; Z87.19 Personal history of other diseases of the digestive system; Z98.890 Other specified postprocedural states; Z79.891 Long term (current) use of opiate analgesic; Z79.899 Other long term (current) drug therapy; X58.XXXA Exposure to other specified factors, initial encounter
CPT/HCPCS: 29881; 29876; J2250; J1170; J1100; J0690; J2405; J3010; J1885; J2704

== ENCOUNTER 2020-01-30 09:47 | Emergency (ER) | payer OTHER ==
[2020-01-30 10:00] VITALS: BP 151/100; RESP 18; TEMP 99.7
[2020-01-30] MEDS ORDERED: KETOROLAC 15 MG/ML 1 ML VIAL IM STA (10:14)
[2020-01-30] MEDS ORDERED: IPRATROPIUM-ALBUTEROL 3 ML NEB INHALATION STA (10:14)
[2020-01-30] MEDS ORDERED: PROPARACAINE 0.5% OPHTH DROPS 15 ML BTL BOTH EYES SCH (10:15)
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
[2020-01-30] MEDS ORDERED: PROPARACAINE 0.5% OPHTH DROPS 15 ML BTL BOTH EYES STA (10:19)
[2020-01-30 10:42] VITALS: PULSE 86
== END 2020-01-30 10:56 | disposition home or self-care (01) ==
LOC: EC 09:47
DX: T65.893A Toxic effect of other specified substances, assault, initial encounter (principal); H10.219 Acute toxic conjunctivitis, unspecified eye; I10 Essential (primary) hypertension; I25.2 Old myocardial infarction; F17.200 Nicotine dependence, unspecified, uncomplicated; Z79.899 Other long term (current) drug therapy; Z88.5 Allergy status to narcotic agent; Z85.828 Personal history of other malignant neoplasm of skin; Y92.481 Parking lot as the place of occurrence of the external cause
CPT/HCPCS: 94640; 99284; 96372; J1885

== ENCOUNTER → 2020-03-12 | Outpatient (CLI) | payer OTHER ==
--- NOTE | 2020-03-12 18:07 | MR ---
EXAMINATION TYPE: MR knee LT wo con DATE OF EXAM: 03/12/2020 COMPARISON: Left knee radiograph 02/13/2020 HISTORY: Left knee pain TECHNIQUE: Multiplanar, multisequence imaging of the left knee is performed without IV contrast. FINDINGS: MEDIAL MENISCUS: Anterior and posterior horns are intact without tear. High signal of the posterior h orn of the medial meniscus most likely represents mucoid degeneration. LATERAL MENISCUS: Anterior and posterior horns are intact without tear. High signal of the posterior horn of the lateral meniscus and body most likely represents mucoid degeneration. There is fraying of the posterior horn at the tibial articular surface. CRUCIATE LIGAMENTS: The anterior and posterior cruciate ligaments are intact and unremarkable. COLLATERAL LIGAMENTS: The medial collateral ligament and lateral collateral ligament complex are inta ct and unremarkable. EXTENSOR MECHANISM: Visualized quadriceps and patellar tendons are intact. EFFUSION: No significant suprapatellar joint effusion. POPLITEAL CYST: Tiny 6 mm popliteal cyst. TRICOMPARTMENT SPACES: No joint space narrowing. Minimal lateral compartment and patellofemoral spurr ing. CARTILAGE: Medial compartment fissuring of the mid femoral condyle with underlying subchondral cysts. Lateral compartment thinning of the mid femoral condyle cartilage. Patellofemoral cartilage intact. BONE MARROW SIGNAL: Normal marrow signal is appreciated. Subcentimeter likely benign bone islands of the medial femoral condyle. OTHER: No additional significant abnormality is appreciated. IMPRESSION: 1. 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 Fraying along the tibial surface of the pos terior horn of the lateral meniscus. 2. Chondrosis and minimal bicompartmental arthropathy as above.
== END | disposition home or self-care (01) ==
LOC: RADMRIMAIN 08:17
PROVIDERS: ATTEND Orthopaedic Surgery
DX: M17.12 Unilateral primary osteoarthritis, left knee (principal); M23.8X2 Other internal derangements of left knee

== ENCOUNTER → 2020-04-03 | Outpatient (CLI) | payer OTHER ==
[2020-04-03 10:05] LABS: Basophils % (A) 1 %; Eosinophils # (A) 0.3 k/uL (0-0.7); Eosinophils % (A) 5 %; HGB 15.6 gm/dL (13.0-17.5); Lymphocytes # (A) 1.8 k/uL (1.0-4.8); Lymphocytes % (A) 27 %; MCH 31.1 pg (25.0-35.0); MCHC 33.8 g/dL (31.0-37.0); MCV 91.9 fL (80.0-100.0); Mean Platelet Volume 6.4; Monocytes # (A) 0.5 k/uL (0-1.0); Monocytes % (A) 8 %; Neutrophils # (A) 3.7 k/uL (1.3-7.7); Neutrophils % (A) 57 %; Platelet Count 299 k/uL (150-450); RBC 5.01 m/uL (4.30-5.90); WBC 6.5 k/uL (3.8-10.6)
[2020-04-03 10:10] LABS: Appearance,Urine Clear (Clear); Bilirubin,Urine Negative (Negative); Blood,Urine Negative (Negative); Color,Urine Yellow; Glucose,Urine (UA) Negative (Negative); Ketones,Urine Negative (Negative); Leukocyte Esterase,Urine Negative (Negative); Nitrite,Urine Negative (Negative); PH, Urine 6.5 (5.0-8.0); Protein,Urine Trace (Negative); Specific Gravity,Urine 1.028 (1.001-1.035); Urobilinogen,Urine <2.0 mg/dL (<2.0)
[2020-04-03 17:42] LABS: Ferritin 77.4 ng/mL (22.0-322.0)
[2020-04-03 18:47] LABS: % Iron Saturation 20.79 (15.00-50.00); Albumin 4.9 g/dL (3.80-4.90); Albumin/Globulin Ratio 2.72 (1.60-3.17); Anion Gap 9.6 mmol/L (4.00-12.00); BUN/Creat Ratio 14.17 Ratio (12.00-20.00); Carbon Dioxide 27.4 mmol/L (21.6-31.8); Globulin 1.8 g/dL (1.6-3.3); Magnesium 2.1 mg/dL (1.5-2.4); Non-African American GFR(CKD) 68.1 (60.0-200.0); Phosphorus 2.8 mg/dL (2.4-5.1); Potassium 4.3 mmol/L (3.5-5.5); Total Bilirubin 0.4 mg/dL (0.3-1.2); Total Protein 6.7 g/dL (6.2-8.2); Uric Acid 9.6 mg/dL (3.7-8.7)
== END | disposition home or self-care (01) ==
LOC: LABWHC1 08:47
PROVIDERS: ATTEND Nurse Practitioner Family
DX: N18.30 Chronic kidney disease, stage 3 unspecified (principal)
CPT/HCPCS: 36415; 80053; 81003; 82306; 82728; 83540; 83550; 83735; 83970; 84100; 84550; 85025

== ENCOUNTER 2020-04-21 14:19 | Emergency (ER) | payer OTHER ==
[2020-04-21 14:29] VITALS: BP 138/97; PULSE 83; RESP 18; TEMP 98.9
[2020-04-21] MEDS ORDERED: SODIUM CHLORIDE 0.9% 1,000 ML IV STA (14:49)
[2020-04-21] MEDS ORDERED: ONDANSETRON 4 MG/2 ML VIAL IVP STA (14:49)
--- NOTE | 2020-04-21 15:00 | ED ---
General Adult HPI - General Chief complaint: Nausea/Vomiting/Diarrhea Stated complaint: Vomiting,Diarrhea,SOB,Cough,Dizziness Time Seen by Provider: 04/21/20 14:25 Source: patient, RN notes reviewed, old records reviewed Mode of arrival: ambulatory Limitations: no limitations - History of Present Illness Initial comments: This is a 54-year-old male who presents emergency Department complaining of nausea vomiting diarrhea. Patient states the diarrhea has been intermittent ever since July. Patient states ever since he had a hiatal hernia repair recent problems with diarrhea. Patient states for the last 5 days he has had constant diarrhea and feeling somewhat weaker because of it and today he started vomiting and having diffuse abdominal pain so he decided to come to the emergency department. Patient states also while he was vomiting he was having some shortness of breath but in between episodes of vomiting he was not short of breath. Patient denies any chest pain or palpitations. Patient is not any fever chills or cough. Patient denies lightheadedness or dizziness. - Related Data Home Medications Medication Instructions Recorded Confirmed Atenolol/Chlorthalidone 1 tab PO DAILY 11/27/15 11/23/19 [Atenolol-Chlorthalidone 50-25] Cetirizine HCl [Zyrtec] 10 mg PO DAILY 08/29/18 11/23/19 Latanoprost [Xalatan 0.005%] 1 drop BOTH EYES HS 08/29/18 11/23/19 Baclofen [Lioresal] 10 mg PO BID 11/22/19 11/23/19 HYDROcodone/APAP 10-325MG [[place] 1 tab PO Q8HR PRN 11/22/19 11/23/19 10-325] Allergies Allergy/AdvReac Type Severity Reaction Status Date / Time codeine Allergy Rash/Hives Verified 01/30/20 10:00 Review of Systems ROS Statement: Those systems with pertinent positive or pertinent negative responses have been documented in the HPI. ROS Other: All systems not noted in ROS Statement are negative. Past Medical History Past Medical History: Asthma, Cancer, Chest Pain / Angina, GERD/Reflux, Hypertension, Myocardial Infarction (OR), Osteoarthritis (OA), Renal Disease Additional Past Medical History / Comment(s): Degenerative joint disease in his back, elevated liver function tests, KIDNEY'S AT ABOUT 57 PER PT, SKIN CANCER, BILATERAL CARPAL TUNNEL, Last Myocardial Infarction Date:: August 2014 History of Any Multi-Drug Resistant Organisms: None Reported Date of last positivie culture/infection: 06/18/19 MDRO Source:: KNEE Past Surgical History: Heart Catheterization Additional Past Surgical History / Comment(s): LT Eye - Has Nylon Screen FROM INJURY at 16 yrs old. PAIN PROC. Skin cancer removal Past Anesthesia/Blood Transfusion Reactions: No Reported Reaction Past Psychological History: Anxiety, Depression Smoking Status: Current some day smoker Past Alcohol Use History: None Reported Past Drug Use History: None Reported, Marijuana - Past Family History Father Family Medical History: Coronary Artery Disease (CAD), Myocardial Infarction (OR) Additional Family Medical History / Comment(s): Father has 3 coronary stents. Mother Additional Family Medical History / Comment(s): Mother has irregular heart beat, had tx for this . General Exam - General Exam Comments Initial Comments: GENERAL: Patient is well-developed and well-nourished. Patient is nontoxic and well- hydrated and is in no acute distress. ENT: Neck is soft and supple. No significant lymphadenopathy is noted. Oropharynx is clear. Moist mucous membranes. Neck has full range of motion without eliciting any pain. EYES: The sclera were anicteric and conjunctiva were pink and moist. Extraocular movements were intact and pupils were equal round and reactive to light. Eyelids were unremarkable. PULMONARY: Unlabored respirations. Good breath sounds bilaterally. No audible rales rhonchi or wheezing was noted. CARDIOVASCULAR: There is a regular rate and rhythm without any murmurs gallops or rubs. ABDOMEN: Patient has diffuse abdominal tenderness SKIN: Skin is clear with no lesions or rashes and otherwise unremarkable. NEUROLOGIC: Patient is alert and oriented x3. Cranial nerves II through XII are grossly intact. Motor and sensory are also intact. Normal speech, volume and content. Symmetrical smile. MUSCULOSKELETAL: Normal extremities with adequate strength and full range of motion. No lower extremity swelling or edema. No calf tenderness. LYMPHATICS: No significant lymphadenopathy is noted PSYCHIATRIC: Normal psychiatric evaluation. Limitations: no limitations Course Vital Signs 04/21/20 14:21 Temperature 98.9 F Pulse Rate 83 Respiratory 18 Rate Blood Pressure 138/97 O2 Sat by Pulse 98 Oximetry Medical Decision Making - Medical Decision Making I will back in the room after the CAT scan was done the CAT scan showed no acute normalities. Patient was in no distress at this time stated his pain and gone away and states it only comes on when he has eaten recently. Patient at this point time admitted to me that he has been taking Kratom - Lab Data Result diagrams: 04/21/20 15:36 04/21/20 15:36 Lab Results 04/21/20 04/21/20 04/21/20 Range/Units 15:36 15:36 15:36 WBC 17.8 H (3.8-10.6) k/uL RBC 5.33 (4.30-5.90) m/uL Hgb 17.1 (13.0-17.5) gm/dL Hct 46.7 (39.0-53.0) % MCV 87.7 (80.0-100.0) fL MCH 32.1 (25.0-35.0) pg MCHC 36.6 (31.0-37.0) g/dL RDW 12.0 (11.5-15.5) % Plt Count 292 (150-450) k/uL MPV 6.7 Neutrophils % (Manual) 51 % Band Neuts % (Manual) 1 % Lymphocytes % (Manual) 17 % Monocytes % (Manual) 4 % Eosinophils % (Manual) 27 % Neutrophils # (Manual) 9.20 H (1.3-7.7) k/uL Lymphocytes # (Manual) 3.03 (1.0-4.8) k/uL Monocytes # (Manual) 0.71 (0-1.0) k/uL Eosinophils # (Manual) 4.81 H (0-0.7) k/uL Nucleated RBCs 0 (0-0) /100 WBC Manual Slide Review Performed RBC Morphology Normal Sodium 138 (137-145) mmol/L Potassium 3.0 L (3.5-5.1) mmol/L Chloride 100 (98-107) mmol/L Carbon Dioxide 27 (22-30) mmol/L Anion Gap 11 mmol/L BUN 20 (9-20) mg/dL Creatinine 1.35 H (0.66-1.25) mg/dL Est GFR (CKD-EPI)AfAm 68 (>60 ml/min/1.73 sqM) Est GFR (CKD-EPI)NonAf 59 (>60 ml/min/1.73 sqM) Glucose 136 H (74-99) mg/dL Plasma Lactic Acid Lico (0.7-2.0) mmol/L Calcium 10.1 (8.4-10.2) mg/dL Total Bilirubin 0.6 (0.2-1.3) mg/dL AST 23 (17-59) U/L ALT 16 (4-49) U/L Alkaline Phosphatase 103 (38-126) U/L Total Protein 7.7 (6.3-8.2) g/dL Albumin 4.9 (3.5-5.0) g/dL Amylase 36 (30-110) U/L Lipase 77 (23-300) U/L Urine Color Yellow Urine Appearance Clear (Clear) Urine pH 6.0 (5.0-8.0) Ur Specific [place] 1.028 (1.001-1.035) Urine Protein 1+ H (Negative) Urine Glucose (UA) Negative (Negative) Urine Ketones Negative (Negative) Urine Blood Negative (Negative) Urine Nitrite Negative (Negative) Urine Bilirubin Negative (Negative) Urine Urobilinogen <2.0 (<2.0) mg/dL Ur Leukocyte Esterase Negative (Negative) Urine WBC 2 (0-5) /hpf Ur Squamous Epith Cells <1 (0-4) /hpf Amorphous Sediment Rare H (None) /hpf Hyaline Casts 33 H (0-2) /lpf Urine Mucus Many H (None) /hpf Urine Opiates Screen (NotDetected) Ur Oxycodone Screen (NotDetected) Urine Methadone Screen (NotDetected) Ur Propoxyphene Screen (NotDetected) Ur Barbiturates Screen (NotDetected) U Tricyclic Antidepress (NotDetected) Ur Phencyclidine Scrn (NotDetected) Ur Amphetamines Screen (NotDetected) U Methamphetamines Scrn (NotDetected) U Benzodiazepines Scrn (NotDetected) Urine Cocaine Screen (NotDetected) U Marijuana (THC) Screen (NotDetected) 04/21/20 04/21/20 Range/Units 15:36 15:36 WBC (3.8-10.6) k/uL RBC (4.30-5.90) m/uL Hgb (13.0-17.5) gm/dL Hct (39.0-53.0) % MCV (80.0-100.0) fL MCH (25.0-35.0) pg MCHC (31.0-37.0) g/dL RDW (11.5-15.5) % Plt Count (150-450) k/uL MPV Neutrophils % (Manual) % Band Neuts % (Manual) % Lymphocytes % (Manual) % Monocytes % (Manual) % Eosinophils % (Manual) % Neutrophils # (Manual) (1.3-7.7) k/uL Lymphocytes # (Manual) (1.0-4.8) k/uL Monocytes # (Manual) (0-1.0) k/uL Eosinophils # (Manual) (0-0.7) k/uL Nucleated RBCs (0-0) /100 WBC Manual Slide Review RBC Morphology Sodium (137-145) mmol/L Potassium (3.5-5.1) mmol/L Chloride (98-107) mmol/L Carbon Dioxide (22-30) mmol/L Anion Gap mmol/L BUN (9-20) mg/dL Creatinine (0.66-1.25) mg/dL Est GFR (CKD-EPI)AfAm (>60 ml/min/1.73 sqM) Est GFR (CKD-EPI)NonAf (>60 ml/min/1.73 sqM) Glucose (74-99) mg/dL Plasma Lactic Acid Lico 1.6 (0.7-2.0) mmol/L Calcium (8.4-10.2) mg/dL Total Bilirubin (0.2-1.3) mg/dL AST (17-59) U/L ALT (4-49) U/L Alkaline Phosphatase (38-126) U/L Total Protein (6.3-8.2) g/dL Albumin (3.5-5.0) g/dL Amylase (30-110) U/L Lipase (23-300) U/L Urine Color Urine Appearance (Clear) Urine pH (5.0-8.0) Ur Specific [place] (1.001-1.035) Urine Protein (Negative) Urine Glucose (UA) (Negative) Urine Ketones (Negative) Urine Blood (Negative) Urine Nitrite (Negative) Urine Bilirubin (Negative) Urine Urobilinogen (<2.0) mg/dL Ur Leukocyte Esterase (Negative) Urine WBC (0-5) /hpf Ur Squamous Epith Cells (0-4) /hpf Amorphous Sediment (None) /hpf Hyaline Casts (0-2) /lpf Urine Mucus (None) /hpf Urine Opiates Screen Detected H (NotDetected) Ur Oxycodone Screen Not Detected (NotDetected) Urine Methadone Screen Not Detected (NotDetected) Ur Propoxyphene Screen Not Detected (NotDetected) Ur Barbiturates Screen Not Detected (NotDetected) U Tricyclic Antidepress Not Detected (NotDetected) Ur Phencyclidine Scrn Not Detected (NotDetected) Ur Amphetamines Screen Not Detected (NotDetected) U Methamphetamines Scrn Not Detected (NotDetected) U Benzodiazepines Scrn Not Detected (NotDetected) Urine Cocaine Screen Not Detected (NotDetected) U Marijuana (THC) Screen Not Detected (NotDetected) Disposition Clinical Impression: Gastroenteritis Disposition: HOME SELF-CARE Condition: Good Instructions (If sedation given, give patient instructions): Gastroenteritis (ED) Additional Instructions: Patient should stop taking Kratom. Patient should bring in the stool sample that his doctor gave him to do. Patient should follow-up with Dr. Irwin tomorrow. Is patient prescribed a controlled substance at d/c from ED?: No Referrals: Jennifer Irwin MD [Primary Care Provider] - 1-2 days Time of Disposition: 18:27
[2020-04-21 15:49] LABS: HCT 46.7 % (39.0-53.0); HGB 17.1 gm/dL (13.0-17.5); MCH 32.1 pg (25.0-35.0); MCHC 36.6 g/dL (31.0-37.0); MCV 87.7 fL (80.0-100.0); Mean Platelet Volume 6.7; Platelet Count 292 k/uL (150-450); RBC 5.33 m/uL (4.30-5.90); WBC 17.8 k/uL (3.8-10.6)
[2020-04-21 16:03] LABS: Albumin 4.9 g/dL (3.5-5.0); Calcium 10.1 mg/dL (8.4-10.2); Total Bilirubin 0.6 mg/dL (0.2-1.3); Total Protein 7.7 g/dL (6.3-8.2)
[2020-04-21 16:05] LABS: Amorphous Sediment,Urine Rare /hpf; Appearance,Urine Clear (Clear); Bilirubin,Urine Negative (Negative); Blood,Urine Negative (Negative); Color,Urine Yellow; Glucose,Urine (UA) Negative (Negative); Hyaline Casts,Urine 33 /lpf (0-2); Ketones,Urine Negative (Negative); Leukocyte Esterase,Urine Negative (Negative); Mucus,Urine Many /hpf; Nitrite,Urine Negative (Negative); Protein,Urine 1+ (Negative); Specific Gravity,Urine 1.028 (1.001-1.035); Squamous Epithelial Cell,Urine <1 /hpf (0-4); Urobilinogen,Urine <2.0 mg/dL (<2.0); WBC,Urine 2 /hpf (0-5)
--- NOTE | 2020-04-21 16:25 | XR ---
EXAMINATION TYPE: XR chest 2V DATE OF EXAM: 04/21/2020 COMPARISON: 09/05/2014. HISTORY: Difficulty breathing. TECHNIQUE: Frontal and lateral views of the chest are obtained. FINDINGS: There is no focal air space opacity, pleural effusion, or pneumothorax seen. The cardiac silhouette size is within normal limits. The osseous structures are intact. IMPRESSION: No acute cardiopulmonary process.
[2020-04-21 16:46] LABS: Band Neutrophils % 1 %; Eosinophils # (M) 4.81 k/uL (0-0.7); Lymphocytes # (M) 3.03 k/uL (1.0-4.8); Monocytes # (M) 0.71 k/uL (0-1.0); Neutrophils % (M) 51 %; Nucleated Red Blood Cells 0 /100 WBC (0-0); Total Cells Counted 100
[2020-04-21] MEDS ORDERED: KETOROLAC 15 MG/ML 1 ML VIAL IVP STA (16:47)
[2020-04-21 18:07] LABS: Amphetamine Screen,Urine Not Detected (NotDetected); Barbiturate Screen,Urine Not Detected (NotDetected); Benzodiazepines Screen,Urine Not Detected (NotDetected); Cocaine Screen,Urine Not Detected (NotDetected); Methadone Screen, Urine Not Detected (NotDetected); Opiate Screen,Urine Detected (NotDetected); Oxycodone Screen, Urine Not Detected (NotDetected); Phencyclidine Screen,Urine Not Detected (NotDetected); Tricyclic Antidepressant,Urine Not Detected (NotDetected); Urn Cannabinoid Scrn Not Detected (NotDetected)
--- NOTE | 2020-04-21 18:10 | CT ---
EXAMINATION TYPE: CT abdomen pelvis w con DATE OF EXAM: 04/21/2020 COMPARISON: None available. HISTORY: Abdominal pain and nausea CT DLP: 1039.1 mGycm Automated exposure control for dose reduction was used. TECHNIQUE: Helical acquisition of images was performed from the lung bases through the pelvis. CONTRAST: Performed without Oral Contrast and with IV Contrast, patient injected with 100 mL of Isovue 300. FINDINGS: LUNG BASES: No significant abnormality is appreciated. LIVER/GB: No significant abnormality is appreciated. Cholecystectomy noted. PANCREAS: No significant abnormality is seen. SPLEEN: No significant abnormality is seen. ADRENALS: No significant abnormality is seen. KIDNEYS: No significant abnormality is seen. FREE AIR: No free air is visualized. RETROPERITONEAL ADENOPATHY: None visualized REPRODUCTIVE ORGANS: No significant abnormality is seen URINARY BLADDER: No significant abnormality is seen. PELVIC ADENOPATHY: None visualized. OSSEOUS STRUCTURES: No significant abnormality is seen. BOWEL: No acute abnormality is seen. Small hiatal hernia. Normal appendix. OTHER: None. IMPRESSION: NO ACUTE ABNORMALITY OF THE ABDOMEN OR PELVIS.
[2020-04-21] MEDS ORDERED: DIPHENOX-ATROP STARTER PACK 8 TAB BTL PO STA (18:27)
[2020-04-21] MEDS ORDERED: DIPHENOX-ATROP 2.5-0.025 MG 1 EACH TAB PO STA (18:27)
== END 2020-04-21 18:50 | disposition home or self-care (01) ==
LOC: EC 14:19
DX: K52.9 Noninfective gastroenteritis and colitis, unspecified (principal); J45.909 Unspecified asthma, uncomplicated; I25.2 Old myocardial infarction; I10 Essential (primary) hypertension; M19.90 Unspecified osteoarthritis, unspecified site; F17.200 Nicotine dependence, unspecified, uncomplicated; Z85.828 Personal history of other malignant neoplasm of skin; Z79.899 Other long term (current) drug therapy; Z95.5 Presence of coronary angioplasty implant and graft; Z98.890 Other specified postprocedural states
CPT/HCPCS: 36415; 80053; 82150; 83605; 83690; 85025; 81001; 80306; 71046; 74177; 99285; 96374; 96375; 96361 ×3; J2405; J1885; Q9967

== ENCOUNTER → 2020-10-24 | Outpatient (CLI) | payer OTHER ==
[2020-10-24 11:30] LABS: Appearance,Urine Clear (Clear); Bilirubin,Urine Negative (Negative); Blood,Urine Trace (Negative); Color,Urine Yellow; Glucose,Urine (UA) Negative (Negative); Ketones,Urine Negative (Negative); Leukocyte Esterase,Urine Negative (Negative); Mucus,Urine Rare /hpf; Nitrite,Urine Negative (Negative); PH, Urine 5.5 (5.0-8.0); Protein,Urine Negative (Negative); RBC,Urine <1 /hpf (0-5); Specific Gravity,Urine 1.032 (1.001-1.035); Urobilinogen,Urine <2.0 mg/dL (<2.0); WBC,Urine <1 /hpf (0-5)
[2020-10-24 14:22] LABS: HCT 44.1 % (39.6-50.0); HGB 15.2 g/dL (13.0-17.0); MCH 30.5 pg (27.0-32.0); MCHC 34.5 g/dL (32.0-37.0); MCV 88.4 fL (80.0-97.0); Mean Platelet Volume 9.4 fL (9.5-12.2); Platelet Count 312 X 10*3/uL (140-440); RBC 4.99 X 10*6/uL (4.40-5.60)
[2020-10-24 21:58] LABS: African American GFR (CKD) 87.1 (60.0-200.0); Albumin 4.8 g/dL (3.80-4.90); Albumin/Globulin Ratio 2.29 (1.60-3.17); Anion Gap 9.6 mmol/L (4.00-12.00); BUN/Creat Ratio 23.64 Ratio (12.00-20.00); Carbon Dioxide 23.4 mmol/L (21.6-31.8); Globulin 2.1 g/dL (1.6-3.3); Non-African American GFR(CKD) 75.2 (60.0-200.0); Total Bilirubin 0.6 mg/dL (0.2-1.2); Total Protein 6.9 g/dL (6.2-8.2); Uric Acid 7.5 mg/dL (3.7-8.7)
[2020-10-24 21:59] LABS: % Iron Saturation 20.52 (15.00-50.00); Magnesium 2.1 mg/dL (1.5-2.4); Phosphorus 3.5 mg/dL (2.4-5.1)
[2020-10-24 22:08] LABS: Ferritin 121.5 ng/mL (22.0-322.0)
== END | disposition home or self-care (01) ==
LOC: LABWHC1 10:27
PROVIDERS: ATTEND Nurse Practitioner Family
DX: N18.30 Chronic kidney disease, stage 3 unspecified (principal); D64.9 Anemia, unspecified; N39.0 Urinary tract infection, site not specified; N25.81 Secondary hyperparathyroidism of renal origin; E55.9 Vitamin D deficiency, unspecified; M10.9 Gout, unspecified
CPT/HCPCS: 36415; 80053; 81001; 82306; 82728; 83540; 83550; 83735; 83970; 84100; 84550; 85027

== ENCOUNTER → 2021-04-29 | Outpatient (CLI) | payer OTHER ==
[2021-04-29 13:16] LABS: Appearance,Urine Clear (Clear); Bilirubin,Urine Negative (Negative); Blood,Urine Negative (Negative); Color,Urine Yellow; Glucose,Urine (UA) Negative (Negative); Ketones,Urine Negative (Negative); Leukocyte Esterase,Urine Negative (Negative); Nitrite,Urine Negative (Negative); PH, Urine 6.5 (5.0-8.0); Protein,Urine Negative (Negative); Specific Gravity,Urine 1.024 (1.001-1.035); Urobilinogen,Urine <2.0 mg/dL (<2.0)
[2021-04-29 18:44] LABS: HCT 44.2 % (39.6-50.0); HGB 15.5 g/dL (13.0-17.0); MCH 30.6 pg (27.0-32.0); MCHC 35.1 g/dL (32.0-37.0); MCV 87.2 fL (80.0-97.0); Mean Platelet Volume 8.9 fL (9.5-12.2); Platelet Count 354 X 10*3/uL (140-440); RBC 5.07 X 10*6/uL (4.40-5.60); RDW 11.7 % (11.5-14.5); WBC 8.16 X 10*3/uL (4.50-10.00)
[2021-04-29 21:56] LABS: % Iron Saturation 19.94 (15.00-50.00); African American GFR (CKD) 78.4 (60.0-200.0); Albumin/Globulin Ratio 2.25 (1.60-3.17); Anion Gap 17.4 mmol/L (10.00-18.00); Blood Urea Nitrogen 16.8 mg/dL (9.0-27.0); Carbon Dioxide 22.2 mmol/L (20.0-27.5); Globulin 2.2 g/dL (1.6-3.3); Magnesium 2.2 mg/dL (1.5-2.4); Non-African American GFR(CKD) 67.7 (60.0-200.0); Phosphorus 3.5 mg/dL (2.4-5.1); Total Bilirubin 0.4 mg/dL (0.30-1.20); Total Protein 7.3 g/dL (6.2-8.2); Uric Acid 5.2 mg/dL (3.7-8.7)
== END | disposition home or self-care (01) ==
LOC: LABWHC1 11:58
PROVIDERS: ATTEND Internal Medicine
DX: D64.9 Anemia, unspecified (principal); N39.0 Urinary tract infection, site not specified; N25.81 Secondary hyperparathyroidism of renal origin; E55.9 Vitamin D deficiency, unspecified; M10.9 Gout, unspecified; N18.2 Chronic kidney disease, stage 2 (mild)
CPT/HCPCS: 36415; 80053; 81003; 82306; 82728; 83540; 83550; 83735; 83970; 84100; 84550; 85027